=== PATIENT | female | born 1935 | race American Indian/Alaskan Native ===

== ENCOUNTER 2020-06-01 16:03 | Inpatient (IN) | payer MEDICARE ==
[2020-06-01] MEDS ORDERED: SODIUM CHLORIDE 0.9% 1000 ML IV SOLN IV ONE (17:03)
--- NOTE | 2020-06-01 17:26 | Emergency Department Report ---
HPI - General Chief Complaint: Altered Mental Status Time Seen by Provider: 06/01/20 17:02 - HPI HPI: Room 19 The patient is an 85-year-old female present with a chief complaint of altered mental status. Per EMS the initial received a call from [facility] stating the patient was in cardiac arrest. Staff reportedly performed a sternal rub for 10 minutes from the patient and the patient came back around. Staff reported the patient had a positive Covid test. EMS reported the patient was hypoxic with a sat in the 80s and the patient was placed on a nonrebreather. In the ED the patient appears to be satting approximately 95% on room air. 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 ED Past Medical Hx - Past Medical History Hx Hypertension: Yes Hx CVA: Yes Hx of Cancer: Yes (cervical) Hx Dementia: Yes (late stage, non-verbal) Additional medical history: hypothyroid - Family History Family history: no significant - Social History Smoking Status: Unknown if ever smoked ED Review of Systems ROS: Stated complaint: SYNOCOPE Other details as noted in HPI Comment: Unobtainable due to pts medical conditions (Dementia, nonverbal) Physical Exam - Physical Exam Vital Signs: Vital Signs 06/01/20 16:20 Temperature 97.8 F Pulse Rate 86 Respiratory 22 Rate Blood Pressure 138/71 O2 Sat by Pulse 99 Oximetry Physical Exam: GENERAL: The patient is well-developed well-nourished elderly female lying on stretcher eyes open nonverbal. [] HEENT: Normocephalic. Atraumatic. Extraocular motions are intact. Patient has moist mucous membranes. NECK: Supple. Trachea midline CHEST/LUNGS: Clear to auscultation. There is no respiratory distress noted. HEART/CARDIOVASCULAR: Regular. There is no tachycardia. There is no gallop rub or murmur. ABDOMEN: Abdomen is soft, nontender. Patient has normal bowel sounds. There is no abdominal distention. SKIN: There is no rash. There is no edema. There is no diaphoresis. NEURO: The patient is awake but nonverbal. MUSCULOSKELETAL: There is no evidence of acute injury. ED Course Vital Signs 06/01/20 16:20 Temperature 97.8 F Pulse Rate 86 Respiratory 22 Rate Blood Pressure 138/71 O2 Sat by Pulse 99 Oximetry ED Medical Decision Making - Lab Data Result diagrams: 06/01/20 17:21 06/01/20 17:21 - EKG Data -: EKG Interpreted by Me Rate: normal - EKG Data When compared to previous EKG there are: previous EKG unavailable Interpretation: other (Atrial fibrillation at 93 bpm. Occasional PVC. No ischemic changes seen) - Radiology Data Radiology results: report reviewed (Chest x-ray), image reviewed (Chest x-ray) interpreted by me: Chest x-ray-no focal infiltrates, no pneumothorax, no foreign body Findings [address] [address] XRay Report Signed Patient: LOGAN PIERCE MR#: [id number] 462 : 1935 Acct:[id number] Age/Sex: 85 / F ADM Date: 06/01/20 Loc: ED Attending Dr: Ordering Physician: LIZBETH FARMER MD Date of Service: 06/01/20 Procedure(s): XR chest 1V ap Accession Number(s): [id number] cc: LIZBETH FARMER MD Fluoro Time In Minutes: CHEST 1 VIEW 06/01/2020 5:43 PM INDICATION / CLINICAL INFORMATION: Hypox ia. COMPARISON: None available. FINDINGS: SUPPORT DEVICES: None. HEART / MEDIASTINUM: No significant abnormality. LUNGS / PLEURA: No significant pulmonary or pleural abnormality. No pneumothorax. ADDITIONAL FINDINGS: No significant additional findings. IMPRESSION: 1. No acute findings. Signer Name: David Aburto MD Signed: 06/01/2020 6:13 PM Workstation Name: [id number] Transcribed By: CHRISTIANO Dictated By: David Aburto MD Electronically Authenticated By: David Aburto MD Signed Date/Time: 06/01/201812 DD/ 12 TD/TT: Findings [address] [address] Cat Scan Report Signed Patient: LOGAN PIERCE MR#: [id number] 462 : 1935 Acct:[id number] Age/Sex: 85 / F ADM Date: 06/01/20 Loc: ED Attending Dr: Ordering Physician: LIZBETH FARMER MD Date of Service: 06/01/20 Procedure(s): CT head/brain wo con Accession Number(s): [id number] cc: LIZBETH FARMER MD CT head/brain wo con INDICATION / CLINICAL INFORMATION: 85 years Female; Altered mental status. TECHNIQUE: Routine CT head without contrast. All CT scans at this location are performed using CT dose reduction for ALARA by means of automated exposure control. COMPARISON: None. FINDINGS: BRAIN / INTRACRANIAL CONTENTS: The motion degrades the image quality despite repeat imaging. However, there is extensive cerebral white matter disease most consistent with microvascular angiopathy. There is encephalomalacia involving posterior cerebrum bilaterally most consistent with old infarcts at. There also appears to be septal malacia involving the inferior temporal lobes, greater on the left which may also reflect chronic ischemic changes or possibly related to previous trauma. There also appears be advanced cerebral atrophy, most notably involving the temporal. There is corresponding prominence of the ventricular system. There is an old small lacunar infarct involving the left jose. There is no clear CT evidence of acute intracranial hemorrhage or significant mass effect. ORBITS: No significant abnormality. SINUSES / MASTOIDS: There is near complete opacification of the visualized maxillary as well as the left sphenoid sinuses with apparent air- fluid levels. Scattered opacification is also seen within the inferior left mastoid air cells. CRANIOCERVICAL JUNCTION: No significant abnormality. ADDITIONAL FINDINGS: None. IMPRESSION: 1. 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 2. There is advanced cerebral atrophy, most oblique involving the temporal lobes. 3. There is no definitive CT evidence of acute intracranial hemorrhage. 4: There is near complete opacification of the visualized maxillary and left sphenoid sinuses. Signer Name: Paulino Davidson MD Signed: 06/01/2020 6:23 PM Workstation Name: [id number] Transcribed By: MR Dictated By: Paulino Davidson MD Electronically Authenticated By: Paulino Davidson MD Signed Date/Time: 06/01/201822 DD/ 16 T D/TT: - Differential Diagnosis Altered mental status Critical care attestation.: If time is entered above; I have spent that time in minutes in the direct care of this critically ill patient, excluding procedure time. ED Disposition Clinical Impression: New onset atrial fibrillation, Episode of unresponsiveness Disposition: OP ADMIT IP TO THIS HOSP Is pt being admited?: Yes Does the pt Need Aspirin: Yes Condition: Fair Time of Disposition: 18:59 (Hospitalist paged (Dr Stock))
[2020-06-01 17:40] LABS: Mean Corpuscular HGB Conc 31 % (30-34); Mean Corpuscular Volume 84 fl (79-97); Platelet Count 289 K/mm3 (140-440); Red Blood Count 5.42 M/mm3 (3.65-5.03)
[2020-06-01 17:56] LABS: Hematocrit 45.4 % (30.3-42.9); Hemoglobin 13.9 gm/dl (10.1-14.3)
[2020-06-01 18:01] LABS: Alanine Aminotransferase 16 units/L (7-56); Albumin 3.4 g/dL (3.9-5); BUN/Creatinine Ratio 27; Blood Urea Nitrogen 24 mg/dL (7-17); Calcium 9.2 mg/dL (8.4-10.2); Hemolysis Index 8
[2020-06-01 18:02] LABS: C-Reactive Protein 5.4 mg/dL (0.00-1.30)
--- NOTE | 2020-06-01 18:18 | XRay Report ---
CHEST 1 VIEW 06/01/2020 5:43 PM INDICATION / CLINICAL INFORMATION: Hypoxia. COMPARISON: None available. FINDINGS: SUPPORT DEVICES: None. HEART / MEDIASTINUM: No significant abnormality. LUNGS / PLEURA: No significant pulmonary or pleural abnormality. No pneumothorax. ADDITIONAL FINDINGS: No significant additional findings. IMPRESSION: 1. No acute findings. Signer Name: David Aburto MD Signed: 06/01/2020 6:13 PM Workstation Name: [id number]
--- NOTE | 2020-06-01 18:27 | Cat Scan Report ---
CT head/brain wo con INDICATION / CLINICAL INFORMATION: 85 years Female; Altered mental status. TECHNIQUE: Routine CT head without contrast. All CT scans at this location are performed using CT dos e reduction for ALARA by means of automated exposure control. COMPARISON: None. FINDINGS: BRAIN / INTRACRANIAL CONTENTS: The motion degrades the image quality despite repeat imaging. However, there is extensive cerebral white matter disease most consistent with microvascular angiopathy. Ther e is encephalomalacia involving posterior cerebrum bilaterally most consistent with old infarcts at. There also appears to be septal malacia involving the inferior temporal lobes, greater on the left wh ich may also reflect chronic ischemic changes or possibly related to previous trauma. There also appe ars be advanced cerebral atrophy, most notably involving the temporal. There is corresponding promine nce of the ventricular system. There is an old small lacunar infarct involving the left jose. There is no clear CT evidence of acute intracranial hemorrhage or significant mass effect. ORBITS: No significant abnormality. SINUSES / MASTOIDS: There is near complete opacification of the visualized maxillary as well as the l eft sphenoid sinuses with apparent air-fluid levels. Scattered opacification is also seen within the inferior left mastoid air cells. CRANIOCERVICAL JUNCTION: No significant abnormality. ADDITIONAL FINDINGS: None. IMPRESSION: 1. 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 2. There is advanced cerebral atrophy, most oblique involving the temporal lobes. 3. There is no definitive CT evidence of acute intracranial hemorrhage. 4: There is near complete opacification of the visualized maxillary and left sphenoid sinuses. Signer Name: Paulino Davidson MD Signed: 06/01/2020 6:23 PM Workstation Name: [id number]
[2020-06-01 18:32] LABS: Free T4 (Free Thyroxine) 1.55 ng/dL (0.76-1.46)
[2020-06-01 18:49] LABS: Anisocytosis Few; Hypochromasia 1+; Total Cells Counted 100
[2020-06-01] MEDS ORDERED: ASPIRIN 325 MG TAB PO ONE (19:02)
[2020-06-01] MEDS ORDERED: ACETAMINOPHEN 325 MG TAB PO PRN (21:59)
[2020-06-01] MEDS ORDERED: HEPARIN 10,000 UNITS/10 ML VIAL IV ONE (22:01)
[2020-06-01 23:04] LABS: Bilirubin,Urine NEG (Negative); Blood,Urine MOD (Negative); Color,Urine Yellow (Yellow); Mucus,Urine 2+ /HPF; Urobilinogen,Urine < 2.0 mg/dL (<2.0)
[2020-06-01 23:05] LABS: WBC,Urine > 182.0 /HPF (0.0-6.0)
[2020-06-01] MEDS ORDERED: HEPARIN/ 0.45% NACL DRIP 25,000 UNIT/500 ML BAG ONE (23:56)
[2020-06-01] MEDS ORDERED: HEPARIN 10,000 UNITS/10 ML VIAL ONE (23:56)
[2020-06-02] MEDS: HEPARIN/ 0.45% NACL DRIP 25,000 UNIT/500 ML BAG IV SCH ×2 (00:53→22:48)
[2020-06-02 01:01] LABS: Creatine Kinase MB 1.4 ng/mL (0.0-4.0)
[2020-06-02 01:19] LABS: Hematocrit 41.6 % (30.3-42.9); Hemoglobin 13.3 gm/dl (10.1-14.3)
[2020-06-02 01:31] LABS: INR 1.1 (0.87-1.13)
[2020-06-02 01:32] LABS: Partial Thromboplastin Time 30.1 Sec. (24.2-36.6)
[2020-06-02] MEDS: SODIUM CHLORIDE 0.9% 1000 ML 1,000 ML IV SCH ×2 (04:21→22:47)
--- NOTE | 2020-06-02 07:31 | History and Physical Report ---
History of Present Illness Date of examination: 06/01/20 Date of admission: 06/01/20 19:25 Chief complaint: Chief complaint is altered mental status History of present illness: History of presenting illness, patient is an 85-year-old male [facility] because of change in mental status, patient was noted by [facility] to have decreased responsiveness last responding to noxious stimulus and EMS was called and also patient was reported to have low oxygen saturation. There was no history of fever or chills, and no history of chest pain, nausea or vomiting.On arrival at the emergency room patient was noted to to have new onset atrial fibrillation with rate controlled. Past History Past Medical History: hypothyroidism (DEMENTIA, CERVICAL CANCER), stroke, other (CERVICAL CANCER, DEMENTIA, HYPOTHYROIDISM) Past Surgical History: No surgical history Social history: other ([employer] AT [employer]) Family history: no significant family history Medications and Allergies Allergies Allergy/AdvReac Type Severity Reaction Status Date / Time Beta-Blockers Allergy Unknown Verified 06/01/20 23:50 (Beta-Adrenergic Bloc Cephalosporins Allergy Unknown Verified 06/01/20 23:50 Penicillins Allergy Unknown Verified 06/01/20 23:50 Home Medications Medication Instructions Recorded Confirmed Last Taken Type Acetaminophen [Tylenol] 650 mg PO Q6HR PRN 06/02/20 06/02/20 Unknown History Ascorbic Acid/Ascorbate Sodium 500 mg PO QDAY 06/02/20 06/02/20 Unknown History [Vitamin C 500 mg Wafer] Aspirin [Aspirin BABY CHEW TAB] 81 mg PO QDAY 06/02/20 06/02/20 Unknown History Cholecalciferol Vit D3 [Vitamin D3 4,000 unit PO QDAY 06/02/20 06/02/20 Unknown History 1,000 UNIT TAB] Colchicine 0.6 mg PO QDAY 06/02/20 06/02/20 Unknown History Famotidine [Pepcid] 10 mg PO QDAY 06/02/20 06/02/20 Unknown History Furosemide (10 mg/ml) [Lasix ORAL 1 ml PO QDAY 06/02/20 06/02/20 Unknown History SOLN] Ipratropium/Albuterol Sulfate 1 ampul IH Q6HR PRN 06/02/20 06/02/20 Unknown History [DUONEB *Not for PRN Use*] Levothyroxine [Synthroid] 125 mcg PO QAM 06/02/20 06/02/20 Unknown History Meloxicam [Mobic] 15 mg PO QDAY 06/02/20 06/02/20 Unknown History Memantine HCl 10 mg PO QDAY 06/02/20 06/02/20 Unknown History Montelukast [Singulair] 10 mg PO QPM 06/02/20 06/02/20 Unknown History Ondansetron [Zofran Odt] 4 mg PO Q8HR 06/02/20 06/02/20 Unknown History Potassium Chloride 20 meq PO Q48HR 06/02/20 06/02/20 Unknown History Sennosides/Docusate Sodium 100 mg PO BID 06/02/20 06/02/20 Unknown History [Docusate Sodium-Senna Tablet] Sennosides/Docusate Sodium 1 each PO BID 06/02/20 06/02/20 Unknown History [Senna-S 8.6-50 mg Tablet] amLODIPine [Norvasc] 10 mg PO DAILY 06/02/20 06/02/20 Unknown History guaiFENesin DM [Guaifenesin Dm 10 ml PO Q8HR PRN 06/02/20 06/02/20 Unknown History Syrup] Active Meds: Active Medications Acetaminophen (Tylenol) 650 mg PO Q4H PRN PRN Reason: Pain, Mild (1-3) Sodium Chloride (Nacl 0.9% 1000 Ml) 1,000 mls @ 75 mls/hr IV DIRECT [facility] Last Admin: 06/02/20 04:21 Dose: 75 mls/hr Documented by: Heparin Sodium/Sodium Chloride (Heparin/ 0.45% Nacl-25,000 Unit/500 Ml) 25,000 unit in 500 mls @ 23 mls/hr IV TITR [facility]; Protocol Last Admin: 06/02/20 00:53 Dose: 1,150 units/hr, 23 mls/hr Documented by: Aztreonam 500 mg/ Sodium (Chloride) 50 mls @ 50 mls/hr IV Q12HR [facility]; Protocol Review of Systems Constitutional: weakness, lethargy, no weight loss, no weight gain, no fever, no chills, no sweats Eyes: bilateral: other (NO BILATERAL EYE SYMPTOM) Ears, nose, mouth and throat: no nasal congestion, no nasal discharge, no dysphagia, no hoarseness, no sore throat, no swelling in mouth, no headache Breasts: deferred Cardiovascular: no chest pain, no palpitations, no lightheadedness, no shortness of breath Respiratory: no cough, no shortness of breath, no dyspnea on exertion Gastrointestinal: no abdominal pain, no nausea, no vomiting, no diarrhea, no constipation, no hematochezia, no dyspepsia/bloating Genitourinary Female: no dysuria, no urge incontinence, no Menstruation: postmenopausal Rectal: no pain, no itching Musculoskeletal: no neck stiffness, no neck pain, no low back pain, no shooting leg pain, no myalgias Integumentary: no rash, no pruritis, no redness, no jaundice, no lesions, no depigmentation Neurological: change in mentation, no seizures, no syncope, no tremors, no convulsions, no change in speech Exam - Constitutional Vitals: Temp Pulse Resp BP Pulse Ox 98.3 F 75 18 166/75 97 06/02/20 06:00 06/02/20 06:33 06/02/20 06:33 06/02/20 06:33 06/02/20 06:33 General appearance: Present: no acute distress - EENT Eyes: Present: PERRL ENT: clear oral mucosa - Neck Neck: Present: supple, normal ROM - Respiratory Respiratory effort: normal - Cardiovascular Rhythm: regular Heart Sounds: Present: S1 & S2. Absent: gallop, systolic murmur, diastolic murmur, click - Extremities Extremities: no ischemia, No edema Peripheral Pulses: within normal limits - Abdominal General gastrointestinal: Present: soft, non-tender, non-distended. Absent: tender, distended, rigid, hepatomegaly, splenomegaly, mass Female genitourinary: Present: deferred - Rectal Rectal Exam: deferred - Integumentary Integumentary: Present: clear, warm, dry - Musculoskeletal Musculoskeletal: strength equal bilaterally HEART Score - HEART Score Age: > 65 Risk factors: 1-2 risk factors Troponin: Troponin T < 0.010 ng/mL (0.00-0.029) 06/02/20 00:14 Troponin: < normal limit - Critical Actions Critical Actions: 0-3 pts:0.9-1.7%risk of adverse cardiac event.Candidate for discharge Results - Labs CBC & Chem 7: 06/02/20 00:14 06/01/20 17:21 Labs: Laboratory Last Values WBC 6.2 K/mm3 (4.5-11.0) 06/01/20 17:21 RBC 5.42 M/mm3 (3.65-5.03) H 06/01/20 17:21 Hgb 13.3 gm/dl (10.1-14.3) 06/02/20 00:14 Hct 41.6 % (30.3-42.9) 06/02/20 00:14 MCV 84 fl (79-97) 06/01/20 17:21 MCH 26 pg (28-32) L 06/01/20 17:21 MCHC 31 % (30-34) 06/01/20 17:21 RDW 15.0 % (13.2-15.2) 06/01/20 17:21 Plt Count 281 K/mm3 (140-440) 06/02/20 00:14 [place] % (Auto) [place] 06/01/20 17:21 Add Manual Diff Complete 06/01/20 17:21 Total Counted 100 06/01/20 17:21 Seg Neuts % (Manual) 53.0 % (40.0-70.0) 06/01/20 17:21 Band Neutrophils % 0 % 06/01/20 17:21 Lymphocytes % (Manual) 26.0 % (13.4-35.0) 06/01/20 17:21 Reactive Lymphs % (Man) 0 % 06/01/20 17:21 Monocytes % (Manual) 18.0 % (0.0-7.3) H 06/01/20 17:21 Eosinophils % (Manual) 2.0 % (0.0-4.3) 06/01/20 17:21 Basophils % (Manual) 1.0 % (0.0-1.8) 06/01/20 17:21 Metamyelocytes % 0 % 06/01/20 17:21 Myelocytes % 0 % 06/01/20 17:21 Promyelocytes % 0 % 06/01/20 17:21 Blast Cells % 0 % 06/01/20 17:21 Nucleated RBC % Not Reportable 06/01/20 17:21 Seg Neutrophils # Man 3.3 K/mm3 (1.8-7.7) 06/01/20 17:21 Band Neutrophils # 0.0 K/mm3 06/01/20 17:21 Lymphocytes # (Manual) 1.6 K/mm3 (1.2-5.4) 06/01/20 17:21 Abs React Lymphs (Man) 0.0 K/mm3 06/01/20 17:21 Monocytes # (Manual) 1.1 K/mm3 (0.0-0.8) H 06/01/20 17:21 Eosinophils # (Manual) 0.1 K/mm3 (0.0-0.4) 06/01/20 17:21 Basophils # (Manual) 0.1 K/mm3 (0.0-0.1) 06/01/20 17:21 Metamyelocytes # 0.0 K/mm3 06/01/20 17:21 Myelocytes # 0.0 K/mm3 06/01/20 17:21 Promyelocytes # 0.0 K/mm3 06/01/20 17:21 Blast Cells # 0.0 K/mm3 06/01/20 17:21 WBC Morphology Not Reportable 06/01/20 17:21 Hypersegmented Neuts Not Reportable 06/01/20 17:21 Hyposegmented Neuts Not Reportable 06/01/20 17:21 Hypogranular Neuts Not Reportable 06/01/20 17:21 Smudge Cells Not Reportable 06/01/20 17:21 Toxic Granulation Not Reportable 06/01/20 17:21 Toxic Vacuolation Not Reportable 06/01/20 17:21 Dohle Bodies Not Reportable 06/01/20 17:21 Pelger-Huet Anomaly Not Reportable 06/01/20 17:21 Alda Rods Not Reportable 06/01/20 17:21 Platelet Estimate Not Reportable 06/01/20 17:21 Clumped Platelets Not Reportable 06/01/20 17:21 Plt Clumps, EDTA Not Reportable 06/01/20 17:21 Large Platelets Not Reportable 06/01/20 17:21 Giant Platelets Not Reportable 06/01/20 17:21 Platelet Satelliting Not Reportable 06/01/20 17:21 Plt Morphology Comment Not Reportable 06/01/20 17:21 RBC Morphology Not Reportable 06/01/20 17:21 Dimorphic RBCs Not Reportable 06/01/20 17:21 Polychromasia Not Reportable 06/01/20 17:21 Hypochromasia 1+ 06/01/20 17:21 Poikilocytosis Not Reportable 06/01/20 17:21 Anisocytosis Few 06/01/20 17:21 Microcytosis Few 06/01/20 17:21 Macrocytosis Not Reportable 06/01/20 17:21 Spherocytes Not Reportable 06/01/20 17:21 Pappenheimer Bodies Not Reportable 06/01/20 17:21 Sickle Cells Not Reportable 06/01/20 17:21 Target Cells Not Reportable 06/01/20 17:21 Tear Drop Cells Not Reportable 06/01/20 17:21 Ovalocytes Not Reportable 06/01/20 17:21 Helmet Cells Not Reportable 06/01/20 17:21 [place] Bodies Not Reportable 06/01/20 17:21 Mitchells Rings Not Reportable 06/01/20 17:21 Raquel Cells Not Reportable 06/01/20 17:21 Bite Cells Not Reportable 06/01/20 17:21 Crenated Cell Not Reportable 06/01/20 17:21 Elliptocytes Not Reportable 06/01/20 17:21 Acanthocytes (Spur) Not Reportable 06/01/20 17:21 Rouleaux Not Reportable 06/01/20 17:21 Hemoglobin C Crystals Not Reportable 06/01/20 17:21 Schistocytes Not Reportable 06/01/20 17:21 Malaria parasites Not Reportable 06/01/20 17:21 Kentrell Bodies Not Reportable 06/01/20 17:21 Hem Pathologist Commnt No 06/01/20 17:21 PT 14.3 Sec. (12.2-14.9) 06/02/20 00:14 INR 1.10 (0.87-1.13) 06/02/20 00:14 APTT 30.1 Sec. (24.2-36.6) 06/02/20 00:14 D-Dimer 1105.43 ng/mlDDU (0-234) H 06/01/20 17:21 Sodium 145 mmol/L (137-145) 06/01/20 17:21 Potassium 4.5 mmol/L (3.6-5.0) 06/01/20 17:21 Chloride 106.7 mmol/L (98-107) 06/01/20 17:21 Carbon Dioxide 26 mmol/L (22-30) 06/01/20 17:21 Anion Gap 17 mmol/L 06/01/20 17:21 BUN 24 mg/dL (7-17) H 06/01/20 17:21 Creatinine 0.9 mg/dL (0.6-1.2) 06/01/20 17:21 Estimated GFR > 60 ml/min 06/01/20 17:21 BUN/Creatinine Ratio 27 % 06/01/20 17:21 Glucose 134 mg/dL (65-100) H 06/01/20 17:21 Glucose 135 mg/dL (65-100) H 06/01/20 17:21 Lactic Acid 1.10 mmol/L (0.7-2.0) 06/01/20 20:21 Calcium 9.2 mg/dL (8.4-10.2) 06/01/20 17:21 Ferritin > 2000.0 ng/mL (10.0-200.0) H 06/01/20 17:21 Total Bilirubin 0.60 mg/dL (0.1-1.2) 06/01/20 17:21 AST 20 units/L (5-40) 06/01/20 17:21 ALT 16 units/L (7-56) 06/01/20 17:21 Alkaline Phosphatase 113 units/L (35-129) 06/01/20 17:21 Lactate Dehydrogenase 203 units/L (91-180) H 06/01/20 17:21 Total Creatine Kinase 136 units/L (30-135) H 06/02/20 00:14 CK-MB (CK-2) 1.4 ng/mL (0.0-4.0) 06/02/20 00:14 CK-MB (CK-2) Rel Index 1.0 (0-4) 06/02/20 00:14 Troponin T < 0.010 ng/mL (0.00-0.029) 06/02/20 00:14 C-Reactive Protein 5.40 mg/dL (0.00-1.30) H 06/01/20 17:21 Total Protein 8.1 g/dL (6.3-8.2) 06/01/20 17:21 Albumin 3.4 g/dL (3.9-5) L 06/01/20 17:21 Albumin/Globulin Ratio 0.7 % 06/01/20 17:21 TSH 3.070 mlU/mL (0.270-4.200) 06/01/20 17:21 Free T4 1.55 ng/dL (0.76-1.46) H 06/01/20 17:21 Urine Color Yellow (Yellow) 06/01/20 Unknown Urine Turbidity Turbid (Clear) 06/01/20 Unknown Urine pH 5.0 (5.0-7.0) 06/01/20 Unknown Ur Specific [place] 1.013 (1.003-1.030) 06/01/20 Unknown Urine Protein 100 mg/dl mg/dL (Negative) 06/01/20 Unknown Urine Glucose (UA) Neg mg/dL (Negative) 06/01/20 Unknown Urine Ketones Neg mg/dL (Negative) 06/01/20 Unknown Urine Blood Mod (Negative) 06/01/20 Unknown Urine Nitrite Neg (Negative) 06/01/20 Unknown Urine Bilirubin Neg (Negative) 06/01/20 Unknown Urine Urobilinogen < 2.0 mg/dL (<2.0) 06/01/20 Unknown Ur Leukocyte Esterase Lg (Negative) 06/01/20 Unknown Urine WBC (Auto) > 182.0 /HPF (0.0-6.0) H 06/01/20 Unknown Urine RBC (Auto) 72.0 /HPF (0.0-6.0) 06/01/20 Unknown Urine WBC Clumps 3+ /HPF 06/01/20 Unknown Urine Mucus 2+ /HPF 06/01/20 Unknown Urine Yeast (Budding) 3+ /HPF 06/01/20 Unknown Microbiology: Microbiology 06/01/20 17:21 Peripheral/Venous Blood Culture - Preliminary Culture in Progress 06/01/20 17:21 Peripheral/Venous Blood Culture - Preliminary Culture in Progress Serrano/IV: Voiding Method Indwelling Catheter IV Catheter Type [Left Forearm INT / Saline Lock ] IV Catheter Type [Right Hand] INT / Saline Lock Assessment and Plan - Patient Problems (1) UTI (urinary tract infection) Current Visit: Yes Status: Acute Plan to address problem: I.V AZTREONAM (2) Episode of unresponsiveness Current Visit: Yes Status: Acute Plan to address problem: 1. OXYGEN BY NASAL CANNULA 2. I.V NORMAL SALINE (3) New onset atrial fibrillation Current Visit: Yes Status: Acute Plan to address problem: 1. I.V HEPARIN ANTICOAGULATION 2. CARDIOLOGY CONSULT 3. SERIAL CARDIAC ENZYME 4. TELEMETRY MORNITORING
[2020-06-02 07:58] LABS: Creatine Kinase MB 1.8 ng/mL (0.0-4.0)
[2020-06-02] MEDS ORDERED: AZTREONAM 500 MG in SODIUM CHLORIDE 0.9% 50 ML IV SCH (10:00)
--- NOTE | 2020-06-02 10:04 | Consultation ---
History of Present Illness Consult date: 06/02/20 Consult reason: atrial fibrillation History of present illness: 85 YO woman who is a [facility] resident and was brought to ED at [facility] due to altered mental status. She was found to have UTI. She was also found to have atrial fibrillation and cardiology consult was requested. Patient is not currently able to provide any medical history Of note, medical records from previous hospitalization at [facility] in 01/2011 also reveal that she was in atrial fibrillation at that time. She was also noted to have significant alzheimer's dementia at the time. EKG on current presentation revealed atrial fibrillation with ventricular rate of 93 bpm, nonspecific ST changes Past History Past Medical History: hypothyroidism (DEMENTIA, CERVICAL CANCER), stroke, other (CERVICAL CANCER, DEMENTIA, HYPOTHYROIDISM) Past Surgical History: No surgical history Social history: other ([facility] [employer]) Family history: no significant family history Medications and Allergies Allergies Allergy/AdvReac Type Severity Reaction Status Date / Time Beta-Blockers Allergy Unknown Verified 06/01/20 23:50 (Beta-Adrenergic Bloc Cephalosporins Allergy Unknown Verified 06/01/20 23:50 Penicillins Allergy Unknown Verified 06/01/20 23:50 Home Medications Medication Instructions Recorded Confirmed Last Taken Type Acetaminophen [Tylenol] 650 mg PO Q6HR PRN 06/02/20 06/02/20 Unknown History Ascorbic Acid/Ascorbate Sodium 500 mg PO QDAY 06/02/20 06/02/20 Unknown History [Vitamin C 500 mg Wafer] Aspirin [Aspirin BABY CHEW TAB] 81 mg PO QDAY 06/02/20 06/02/20 Unknown History Cholecalciferol Vit D3 [Vitamin D3 4,000 unit PO QDAY 06/02/20 06/02/20 Unknown History 1,000 UNIT TAB] Colchicine 0.6 mg PO QDAY 06/02/20 06/02/20 Unknown History Famotidine [Pepcid] 10 mg PO QDAY 06/02/20 06/02/20 Unknown History Furosemide (10 mg/ml) [Lasix ORAL 1 ml PO QDAY 06/02/20 06/02/20 Unknown History SOLN] Ipratropium/Albuterol Sulfate 1 ampul IH Q6HR PRN 06/02/20 06/02/20 Unknown History [DUONEB *Not for PRN Use*] Levothyroxine [Synthroid] 125 mcg PO QAM 06/02/20 06/02/20 Unknown History Meloxicam [Mobic] 15 mg PO QDAY 06/02/20 06/02/20 Unknown History Memantine HCl 10 mg PO QDAY 06/02/20 06/02/20 Unknown History Montelukast [Singulair] 10 mg PO QPM 06/02/20 06/02/20 Unknown History Ondansetron [Zofran Odt] 4 mg PO Q8HR 06/02/20 06/02/20 Unknown History Potassium Chloride 20 meq PO Q48HR 06/02/20 06/02/20 Unknown History Sennosides/Docusate Sodium 100 mg PO BID 06/02/20 06/02/20 Unknown History [Docusate Sodium-Senna Tablet] Sennosides/Docusate Sodium 1 each PO BID 06/02/20 06/02/20 Unknown History [Senna-S 8.6-50 mg Tablet] amLODIPine [Norvasc] 10 mg PO DAILY 06/02/20 06/02/20 Unknown History guaiFENesin DM [Guaifenesin Dm 10 ml PO Q8HR PRN 06/02/20 06/02/20 Unknown History Syrup] Active Meds: Active Medications Acetaminophen (Tylenol) 650 mg PO Q4H PRN PRN Reason: Pain, Mild (1-3) Sodium Chloride (Nacl 0.9% 1000 Ml) 1,000 mls @ 75 mls/hr IV DIRECT NHI Last Admin: 06/02/20 04:21 Dose: 75 mls/hr Documented by: Heparin Sodium/Sodium Chloride (Heparin/ 0.45% Nacl-25,000 Unit/500 Ml) 25,000 unit in 500 mls @ 23 mls/hr IV TITR NHI; Protocol Last Titration: 06/02/20 07:56 Dose: 1,050 units/hr, 21 mls/hr Documented by: Aztreonam (Azactam/Ns 1 Gm/50 Ml) 1 gm in 50 mls @ 50 mls/hr IV Q12HR NHI Physical Examination Vital Signs Temp Pulse Resp BP Pulse Ox 97.8 F 86 22 138/71 99 06/01/20 16:20 06/01/20 16:20 06/01/20 16:20 06/01/20 16:20 08/15/20 16:20 General appearance: other (elderly woman, confused) Neck: Positive: neck supple Cardiac: Positive: irregularly irregular Lungs: Positive: Decreased Breath Sounds Abdomen: Positive: Soft, Active Bowel Sounds Skin: Positive: Clear Extremities: Absent: edema Results 06/02/20 00:14 06/01/20 17:21 Cardiac Enzymes 06/01/20 06/01/20 06/02/20 Range/Units 17:21 17:21 00:14 AST 20 (5-40) units/L Lactate Dehydrogenase 203 H (91-180) units/L CK-MB (CK-2) 1.4 (0.0-4.0) ng/mL 06/02/20 Range/Units 07:08 AST (5-40) units/L Lactate Dehydrogenase (91-180) units/L CK-MB (CK-2) 1.8 (0.0-4.0) ng/mL Coagulation 06/02/20 Range/Units 00:14 PT 14.3 (12.2-14.9) Sec. INR 1.10 (0.87-1.13) APTT 30.1 (24.2-36.6) Sec. CBC 06/01/20 06/02/20 Range/Units 17:21 00:14 WBC 6.2 (4.5-11.0) K/mm3 RBC 5.42 H (3.65-5.03) M/mm3 Hgb 13.9 13.3 (10.1-14.3) gm/dl Hct 45.4 H 41.6 (30.3-42.9) % Plt Count 289 281 (140-440) K/mm3 Comprehensive Metabolic Panel 06/01/20 06/01/20 Range/Units 17:21 17:21 Sodium 145 (137-145) mmol/L Potassium 4.5 (3.6-5.0) mmol/L Chloride 106.7 (98-107) mmol/L Carbon Dioxide 26 (22-30) mmol/L BUN 24 H (7-17) mg/dL Creatinine 0.9 (0.6-1.2) mg/dL Glucose 135 H 134 H (65-100) mg/dL Calcium 9.2 (8.4-10.2) mg/dL AST 20 (5-40) units/L ALT 16 (7-56) units/L Alkaline Phosphatase 113 (35-129) units/L Total Protein 8.1 (6.3-8.2) g/dL Albumin 3.4 L (3.9-5) g/dL Assessment and Plan Atrial fibrillation: Duration unclear but suspect she has longstanding persis tent atrial fibrillation as she was also in AF during hospitalization at [facility] in 2010 [id number] VASc = 4 UTI Likely dementia Htn Recommend: Will pursue rate control strategy for atrial fibrillation - Will need to clarify her baseline mental status prior to determining if she is a good candidate for assisted anticoagulation - suspect that she will not be a good candidate.
[2020-06-02] MEDS: AZTREONAM/NS 1 GM/50 ML 1 GM/50 ML VIAL IV SCH ×2 (11:03→22:43)
[2020-06-03 05:54] LABS: Hematocrit 41.1 % (30.3-42.9); Hemoglobin 13.2 gm/dl (10.1-14.3)
[2020-06-03] MEDS: AZTREONAM/NS 1 GM/50 ML 1 GM/50 ML VIAL IV SCH ×2 (10:17→22:42)
--- NOTE | 2020-06-03 10:38 | Progress Note ---
Assessment and Plan Atrial fibrillation Duration unclear but suspect she has longstanding persistent atrial fibrillation as she was also in AF during hospitalization at [facility] in 2010 UTI Likely dementia Htn Will add low dose beta jelani for rate control of persistent atrial fibrillation. Subjective Date of service: 06/03/20 Interval history: Atrial fibrillation with a well controlled ventricular rate on telemetry. Objective Vital Signs Temp Pulse Resp BP Pulse Ox 06/03/20 05:26 82 20 122/88 96 06/02/20 22:38 97.4 F L 91 H 24 122/67 96 06/02/20 16:48 98 06/02/20 16:45 97.0 F L 81 18 161/90 70 L 06/02/20 11:29 93 06/02/20 11:16 97.0 F L 75 18 165/77 90 - Physical Examination Narrative exam: Deferred due to isolation procotol. Neck: Positive: neck supple Abdomen: Positive: Soft, Active Bowel Sounds Skin: Positive: Clear Extremities: Absent: edema - Labs and Meds CBC 06/03/20 Range/Units 05:02 Hgb 13.2 (10.1-14.3) gm/dl Hct 41.1 (30.3-42.9) % Plt Count 264 (140-440) K/mm3
--- NOTE | 2020-06-03 15:15 | Progress Note ---
Assessment and Plan Assessment and plan: 85-year-old female [facility] because of change in mental status. Patient was noted by [facility] to have decreased responsiveness last responding to noxious stimulus and EMS was called and also patient was reported to have low oxygen saturation. There was no history of fever or chills, and no history of chest pain, nausea or vomiting.On arrival at the emergency room patient was noted to to have new onset atrial fibrillation. She also found to have UTI with started on antibiotics. Cardiology was consulted for atrial fibrillation 06/03. Patient seen and examined at bedside this morning. Patient is confused [baseline unknown]. Vitals reviewed. Cardiology and ID following - Patient Problems (1) Acute metabolic encephalopathy Current Visit: Yes Status: Acute Plan to address problem: Baseline unknown. Patient has a history of dementia Likely worse with infectious process-UTI and COVID-19. Continue antibiotics (2) New onset atrial fibrillation Current Visit: Yes Status: Acute Plan to address problem: Continue rate control medication. Cardiology on board Given advanced dementia, cardiology does not recommend anticoagulation at this time. (3) COVID-19 Current Visit: Yes Status: Acute Plan to address problem: COVID-19. Maintain on isolation ID on board (4) UTI (urinary tract infection) Current Visit: Yes Status: Acute Plan to address problem: Continue antibiotics Urine cultures pending (5) Hematuria Current Visit: Yes Status: Acute Plan to address problem: Likely due to heparin drip. This has been discontinued. As per cardiology, patient is a poor candidate for anticoagulation as his atrial fibrillation is chronic as she has baseline dementia. Resume heparin for DVT prophylaxis only for now and monitor. If repeat bleeding, will hold heparin for DVT prophylaxis and consult urology. Check urinalysis. (6) Sacral ulcer Current Visit: Yes Status: Acute Plan to address problem: Wound care to evaluate. Patient may need debridement (7) DVT prophylaxis Current Visit: Yes Status: Acute Plan to address problem: Heparin History Interval history: See assessment and plan Hospitalist Physical - Constitutional Vitals: Temp Pulse Resp BP Pulse Ox 97.5 F L 79 48 H 160/85 97 06/03/20 11:50 06/03/20 11:50 06/03/20 11:50 06/03/20 11:50 06/03/20 11:50 General appearance: Present: no acute distress, other (elderly woman, confused) - EENT Eyes: Present: PERRL - Neck Neck: Present: supple - Respiratory Respiratory: bilateral: CTA - Cardiovascular Rhythm: irregularly irregular Heart Sounds: Present: S1 & S2 - Abdominal General gastrointestinal: soft, non-tender, non-distended - Integumentary Integumentary: Present: clear - Neurologic Neurologic: CNII-XII intact, other (Complete neurological exam limited by baseli ne dementia) HEART Score - HEART Score Age: > 65 Risk factors: 1-2 risk factors Troponin: Troponin T < 0.010 ng/mL (0.00-0.029) 06/02/20 07:08 Troponin: < normal limit - Critical Actions Critical Actions: 0-3 pts:0.9-1.7%risk of adverse cardiac event.Candidate for discharge Results - Labs CBC & Chem 7: 06/03/20 05:02 06/01/20 17:21 Labs: Laboratory Last Values WBC 6.2 K/mm3 (4.5-11.0) 06/01/20 17: RBC 5.42 M/mm3 (3.65-5.03) H 06/01/20 17: Hgb 13.2 gm/dl (10.1-14.3) 06/03/20 05:02 Hct 41.1 % (30.3-42.9) 06/03/20 05:02 MCV 84 fl (79-97) 06/01/20 17:21 MCH 26 pg (28-32) L 06/01/20 17: MCHC 31 % (30-34) 06/01/20 17: RDW 15.0 % (13.2-15.2) 06/01/20 17: Plt Count 264 K/mm3 (140-440) 06/03/20 05:02 [place] % (Auto) Medical Coding Auditor 06/01/20 17:21 Add Manual Diff Complete 06/01/20 17: Total Counted 100 06/01/20 17: Seg Neuts % (Manual) 53.0 % (40.0-70.0) 06/01/20 17: Band Neutrophils % 0 % 06/01/20 17:21 Lymphocytes % (Manual) 26.0 % (13.4-35.0) 06/01/20 17: Reactive Lymphs % (Man) 0 % 06/01/20 17:21 Monocytes % (Manual) 18.0 % (0.0-7.3) H 06/01/20 17:21 Eosinophils % (Manual) 2.0 % (0.0-4.3) 06/01/20 17:21 Basophils % (Manual) 1.0 % (0.0-1.8) 06/01/20 17:21 Metamyelocytes % 0 % 06/01/20 17:21 Myelocytes % 0 % 06/01/20 17:21 Promyelocytes % 0 % 06/01/20 17:21 Blast Cells % 0 % 06/01/20 17:21 Nucleated RBC % Not Reportable 06/01/20 17:21 Seg Neutrophils # Man 3.3 K/mm3 (1.8-7.7) 06/01/20 17:21 Band Neutrophils # 0.0 K/mm3 06/01/20 17:21 Lymphocytes # (Manual) 1.6 K/mm3 (1.2-5.4) 06/01/20 17:21 Abs React Lymphs (Man) 0.0 K/mm3 06/01/20 17:21 Monocytes # (Manual) 1.1 K/mm3 (0.0-0.8) H 06/01/20 17:21 Eosinophils # (Manual) 0.1 K/mm3 (0.0-0.4) 06/01/20 17:21 Basophils # (Manual) 0.1 K/mm3 (0.0-0.1) 06/01/20 17:21 Metamyelocytes # 0.0 K/mm3 06/01/20 17:21 Myelocytes # 0.0 K/mm3 06/01/20 17:21 Promyelocytes # 0.0 K/mm3 06/01/20 17:21 Blast Cells # 0.0 K/mm3 06/01/20 17:21 WBC Morphology Not Reportable 06/01/20 17:21 Hypersegmented Neuts Not Reportable 06/01/20 17:21 Hyposegmented Neuts Not Reportable 06/01/20 17:21 Hypogranular Neuts Not Reportable 06/01/20 17:21 Smudge Cells Not Reportable 06/01/20 17:21 Toxic Granulation Not Reportable 06/01/20 17:21 Toxic Vacuolation Not Reportable 06/01/20 17:21 Dohle Bodies Not Reportable 06/01/20 17:21 Pelger-Huet Anomaly Not Reportable 06/01/20 17:21 Alda Rods Not Reportable 06/01/20 17:21 Platelet Estimate Not Reportable 06/01/20 17:21 Clumped Platelets Not Reportable 06/01/20 17:21 Plt Clumps, EDTA Not Reportable 06/01/20 17:21 Large Platelets Not Reportable 06/01/20 17:21 Giant Platelets Not Reportable 06/01/20 17:21 Platelet Satelliting Not Reportable 06/01/20 17:21 Plt Morphology Comment Not Reportable 06/01/20 17:21 RBC Morphology Not Reportable 06/01/20 17:21 Dimorphic RBCs Not Reportable 06/01/20 17:21 Polychromasia Not Reportable 06/01/20 17:21 Hypochromasia 1+ 06/01/20 17:21 Poikilocytosis Not Reportable 06/01/20 17:21 Anisocytosis Few 06/01/20 17:21 Microcytosis Few 06/01/20 17:21 Macrocytosis Not Reportable 06/01/20 17:21 Spherocytes Not Reportable 06/01/20 17:21 Pappenheimer Bodies Not Reportable 06/01/20 17:21 Sickle Cells Not Reportable 06/01/20 17:21 Target Cells Not Reportable 06/01/20 17:21 Tear Drop Cells Not Reportable 06/01/20 17:21 Ovalocytes Not Reportable 06/01/20 17:21 Helmet Cells Not Reportable 06/01/20 17:21 [place] Bodies Not Reportable 06/01/20 17:21 [place] Rings Not Reportable 06/01/20 17:21 [place] Cells Not Reportable 06/01/20 17:21 Bite Cells Not Reportable 06/01/20 17:21 Crenated Cell Not Reportable 06/01/20 17:21 Elliptocytes Not Reportable 06/01/20 17:21 Acanthocytes (Spur) Not Reportable 06/01/20 17:21 Rouleaux Not Reportable 06/01/20 17:21 Hemoglobin C Crystals Not Reportable 06/01/20 17:21 Schistocytes Not Reportable 06/01/20 17:21 Malaria parasites Not Reportable 06/01/20 17:21 [place] Bodies Not Reportable 06/01/20 17:21 Hem Pathologist Commnt No 06/01/20 17:21 PT 14.3 Sec. (12.2-14.9) 06/02/20 00:14 INR 1.10 (0.87-1.13) 06/02/20 00:14 APTT 30.1 Sec. (24.2-36.6) 06/02/20 00:14 D-Dimer 1105.43 ng/mlDDU (0-234) H 06/01/20 17:21 Heparin Anti-Xa Level 0.27 U.I./ml (0.3-0.7) L 06/02/20 15:06 Sodium 145 mmol/L (137-145) 06/01/20 17:21 Potassium 4.5 mmol/L (3.6-5.0) 06/01/20 17:21 Chloride 106.7 mmol/L (98-107) 06/01/20 17:21 Carbon Dioxide 26 mmol/L (22-30) 06/01/20 17:21 Anion Gap 17 mmol/L 06/01/20 17:21 BUN 24 mg/dL (7-17) H 06/01/20 17:21 Creatinine 0.9 mg/dL (0.6-1.2) 06/01/20 17:21 Estimated GFR > 60 ml/min 06/01/20 17:21 BUN/Creatinine Ratio 27 % 06/01/20 17:21 Glucose 134 mg/dL (65-100) H 06/01/20 17:21 Glucose 135 mg/dL (65-100) H 06/01/20 17:21 Lactic Acid 1.10 mmol/L (0.7-2.0) 06/01/20 20:21 Calcium 9.2 mg/dL (8.4-10.2) 06/01/20 17:21 Ferritin > 2000.0 ng/mL (10.0-200.0) H 06/01/20 17:21 Total Bilirubin 0.60 mg/dL (0.1-1.2) 06/01/20 17:21 AST 20 units/L (5-40) 06/01/20 17:21 ALT 16 units/L (7-56) 06/01/20 17:21 Alkaline Phosphatase 113 units/L (35-129) 06/01/20 17:21 Lactate Dehydrogenase 203 units/L (91-180) H 06/01/20 17:21 Total Creatine Kinase 121 units/L (30-135) 06/02/20 07:08 CK-MB (CK-2) 1.8 ng/mL (0.0-4.0) 06/02/20 07:08 CK-MB (CK-2) Rel Index 1.4 (0-4) 06/02/20 07:08 Troponin T < 0.010 ng/mL (0.00-0.029) 06/02/20 07:08 C-Reactive Protein 5.40 mg/dL (0.00-1.30) H 06/01/20 17:21 Total Protein 8.1 g/dL (6.3-8.2) 06/01/20 17:21 Albumin 3.4 g/dL (3.9-5) L 06/01/20 17:21 Albumin/Globulin Ratio 0.7 % 06/01/20 17:21 Procalcitonin < 0.05 ng/mL (<0.15) 06/01/20 17:21 TSH 3.070 mlU/mL (0.270-4.200) 06/01/20 17:21 Free T4 1.55 ng/dL (0.76-1.46) H 06/01/20 17:21 Urine Color Yellow (Yellow) 06/01/20 Unknown Urine Turbidity Turbid (Clear) 06/01/20 Unknown Urine pH 5.0 (5.0-7.0) 06/01/20 Unknown Ur Specific [place] 1.013 (1.003-1.030) 06/01/20 Unknown Urine Protein 100 mg/dl mg/dL (Negative) 06/01/20 Unknown Urine Glucose (UA) Neg mg/dL (Negative) 06/01/20 Unknown Urine Ketones Neg mg/dL (Negative) 06/01/20 Unknown Urine Blood Mod (Negative) 06/01/20 Unknown Urine Nitrite Neg (Negative) 06/01/20 Unknown Urine Bilirubin Neg (Negative) 06/01/20 Unknown Urine Urobilinogen < 2.0 mg/dL (<2.0) 06/01/20 Unknown Ur Leukocyte Esterase Lg (Negative) 06/01/20 Unknown Urine WBC (Auto) > 182.0 /HPF (0.0-6.0) H 06/01/20 Unknown Urine RBC (Auto) 72.0 /HPF (0.0-6.0) 06/01/20 Unknown Urine WBC Clumps 3+ /HPF 06/01/20 Unknown Urine Mucus 2+ /HPF 06/01/20 Unknown Urine Yeast (Budding) 3+ /HPF 06/01/20 Unknown Coronavirus (PCR) Positive (Negative) A 06/02/20 Unknown Microbiology: Microbiology 06/01/20 17:21 Peripheral/Venous Blood Culture - Preliminary Coag Negative Staphylococcus 06/01/20 17:21 Peripheral/Venous Blood Culture - Preliminary NO GROWTH AFTER 24 HOURS Serrano/IV: Voiding Method Indwelling Catheter IV Catheter Type [Left Peripheral IV Antecubital] IV Catheter Type [Left Forearm INT / Saline Lock ] IV Catheter Type [Right Hand] INT / Saline Lock Active Medications - Current Medications Current Medications: Generic Name Dose Route Start Last Admin Trade Name Freq PRN Reason Stop Dose Admin Acetaminophen 650 mg 06/01/20 21:59 Tylenol PO Q4H PRN Pain, Mild (1-3) Sodium Chloride 1,000 mls @ 75 mls/hr 06/01/20 22:00 06/02/20 22:47 Nacl 0.9% 1000 Ml IV 75 mls/hr DIRECT NHI Administration Heparin Sodium/Sodium Chloride 25,000 unit in 500 mls @ 23 mls/hr 06/01/20 23:00 06/02/20 22:48 Heparin/ 0.45% Nacl-25,000 Unit/500 Ml IV 1,050 units/hr TITR NHI 21 mls/hr Administration Protocol 1,150 UNITS/HR Aztreonam 1 gm in 50 mls @ 50 mls/hr 06/02/20 10:00 06/03/20 10:17 Azactam/Ns 1 Gm/50 Ml IV 50 mls/hr Q12HR NHI Administration
--- NOTE | 2020-06-03 15:48 | Consultation ---
History of Present Illness - Reason for Consult Consult date: 06/03/20 COVID-19 Requesting physician: ZOE NELSON - History of Present Illness The patient is an 85-year-old female, [facility] resident with dementia, history of cervical cancer, prior CVA was admitted due to change in mental status and hypoxia. Patient had tested positive for COVID-19 at the correction. Patient is nonverbal at baseline. Initial UA was concerning for UTI, patient was started on empiric antibiotics. Patient also tested positive for COVID-19. Patient initially had required nonrebreather mask which was weaned down to room air here. Patient has been afebrile here. Review of Systems: reviewed in the chart, unable to obtain directly due to PPE shortage and preservation Past History Past Medical History: hypothyroidism (DEMENTIA, CERVICAL CANCER), stroke, other (CERVICAL CANCER, DEMENTIA, HYPOTHYROIDISM) Past Surgical History: No surgical history Social history: other ([facility] AT [facility]) Family history: no significant family history Medications and Allergies Allergies Allergy/AdvReac Type Severity Reaction Status Date / Time Beta-Blockers Allergy Unknown Verified 06/01/20 23:50 (Beta-Adrenergic Bloc Cephalosporins Allergy Unknown Verified 06/01/20 23:50 Penicillins Allergy Unknown Verified 06/01/20 23:50 Home Medications Medication Instructions Recorded Confirmed Last Taken Type Acetaminophen [Tylenol] 650 mg PO Q6HR PRN 06/02/20 06/02/20 Unknown History Ascorbic Acid/Ascorbate Sodium 500 mg PO QDAY 06/02/20 06/02/20 Unknown History [Vitamin C 500 mg Wafer] Aspirin [Aspirin BABY CHEW TAB] 81 mg PO QDAY 06/02/20 06/02/20 Unknown History Cholecalciferol Vit D3 [Vitamin D3 4,000 unit PO QDAY 06/02/20 06/02/20 Unknown History 1,000 UNIT TAB] Colchicine 0.6 mg PO QDAY 06/02/20 06/02/20 Unknown History Famotidine [Pepcid] 10 mg PO QDAY 06/02/20 06/02/20 Unknown History Furosemide (10 mg/ml) [Lasix ORAL 1 ml PO QDAY 06/02/20 06/02/20 Unknown History SOLN] Ipratropium/Albuterol Sulfate 1 ampul IH Q6HR PRN 06/02/20 06/02/20 Unknown History [DUONEB *Not for PRN Use*] Levothyroxine [Synthroid] 125 mcg PO QAM 06/02/20 06/02/20 Unknown History Meloxicam [Mobic] 15 mg PO QDAY 06/02/20 06/02/20 Unknown History Memantine HCl 10 mg PO QDAY 06/02/20 06/02/20 Unknown History Montelukast [Singulair] 10 mg PO QPM 06/02/20 06/02/20 Unknown History Ondansetron [Zofran Odt] 4 mg PO Q8HR 06/02/20 06/02/20 Unknown History Potassium Chloride 20 meq PO Q48HR 06/02/20 06/02/20 Unknown History Sennosides/Docusate Sodium 100 mg PO BID 06/02/20 06/02/20 Unknown History [Docusate Sodium-Senna Tablet] Sennosides/Docusate Sodium 1 each PO BID 06/02/20 06/02/20 Unknown History [Senna-S 8.6-50 mg Tablet] amLODIPine [Norvasc] 10 mg PO DAILY 06/02/20 06/02/20 Unknown History guaiFENesin DM [Guaifenesin Dm 10 ml PO Q8HR PRN 06/02/20 06/02/20 Unknown History Syrup] Active Meds: Active Medications Acetaminophen (Tylenol) 650 mg PO Q4H PRN PRN Reason: Pain, Mild (1-3) Sodium Chloride (Nacl 0.9% 1000 Ml) 1,000 mls @ 75 mls/hr IV DIRECT NHI Last Admin: 06/02/20 22:47 Dose: 75 mls/hr Documented by: Heparin Sodium/Sodium Chloride (Heparin/ 0.45% Nacl-25,000 Unit/500 Ml) 25,000 unit in 500 mls @ 23 mls/hr IV TITR NHI; Protocol Last Admin: 06/02/20 22:48 Dose: 1,050 units/hr, 21 mls/hr Documented by: Aztreonam (Azactam/Ns 1 Gm/50 Ml) 1 gm in 50 mls @ 50 mls/hr IV Q12HR NHI Last Admin: 06/03/20 10:17 Dose: 50 mls/hr Documented by: Physical Examination - Physical Exam Narrative exam: Physical Exam (reviewed in chart due to PPE conservation) Constitutional: limited due to PPE conservation strategy Head, Ears, Nose: limited due to PPE conservation strategy Eyes: limited due to PPE conservation strategy Neck: limited due to PPE conservation strategy Oral: limited due to PPE conservation strategy Cardiovascular: limited due to PPE conservation strategy Respiratory: limited due to PPE conservation strategy GI: limited due to PPE conservation strategy Musculoskeletal: limited due to PPE conservation strategy Skin: limited due to PPE conservation strategy Hem/Lymphatic: limited due to PPE conservation strategy Psych: limited due to PPE conservation strategy Neurological: limited due to PPE conservation strategy - Constitutional Vitals: Vital Signs Temp Pulse Resp BP Pulse Ox 97.5 F L 79 48 H 160/85 97 06/03/20 11:50 06/03/20 11:50 06/03/20 11:50 06/03/20 11:50 06/03/20 11:50 Temperature -Last 24 Hours Temperature 97.5 F Temperature 97.4 F Temperature 97.0 F Results - Labs CBC & Chem 7: 06/03/20 05:02 06/01/20 17:21 Labs: Abnormal lab results 06/02/20 Range/Units 15:06 Heparin Anti-Xa Level 0.27 L (0.3-0.7) U.I./ml - Imaging and Cardiology Chest x-ray: report reviewed, image reviewed (no pneumonia) Assessment and Plan Cultures: Coronavirus PCR: Positive Blood culture: 1 out of 4 bottles with coag negative staph A/P: 85-year-old female, [facility] resident with dementia, history of cervical cancer, prior CVA was admitted due to change in mental status and hypoxia: #UTI, acute encephalopathy: Continue empiric aztreonam due to her multiple allergies. #COVID-19: No pneumonia on chest x-ray, no hypoxia. Markers elevated. #Coag negative staph bacteremia: 1 out of 4 bottles positive, likely contaminant. Recs: continue Aztreonam for now, follow up cultures Patient is not hypoxic, no indication for steroids or Remdesivir Trend ferritin, LDH, d-dimer, CRP every 2-3 days for risk stratification and to assess disease progression Yolande Webster MD, FACP [facility] ([facility] C: [phone] O: [phone] F: [phone]
[2020-06-03] MEDS: HEPARIN 5,000 UNIT/1 ML VIAL SUB-Q SCH ×2 (18:33→22:42)
[2020-06-03] MEDS: SODIUM CHLORIDE 0.9% 1000 ML 1,000 ML IV SCH ×2 (22:42→22:49)
[2020-06-04] MEDS: HEPARIN 5,000 UNIT/1 ML VIAL SUB-Q SCH ×3 (05:12→21:36)
[2020-06-04 06:08] LABS: Hematocrit 37.8 % (30.3-42.9); Hemoglobin 12.1 gm/dl (10.1-14.3); Mean Corpuscular HGB Conc 32 % (30-34); Mean Corpuscular Volume 83 fl (79-97); Platelet Count 257 K/mm3 (140-440); Red Blood Count 4.59 M/mm3 (3.65-5.03); Red Cell Distribution Width 14.7 % (13.2-15.2)
[2020-06-04 06:21] LABS: Alanine Aminotransferase 11 units/L (7-56); Albumin 2.8 g/dL (3.9-5); Blood Urea Nitrogen 11 mg/dL (7-17); Calcium 8.3 mg/dL (8.4-10.2); Hemolysis Index 9
[2020-06-04 06:45] LABS: BUN/Creatinine Ratio 22
[2020-06-04 06:55] LABS: Basophils % (Manual) 0 % (0.0-1.8); Monocytes % (Manual) 0 % (0.0-7.3); Total Cells Counted 100
[2020-06-04 06:56] LABS: Anisocytosis Few; Hypochromasia Few; Platelet Estimate Consistent w Auto; Schistocytes Rare
--- NOTE | 2020-06-04 09:52 | Progress Note ---
Assessment and Plan Atrial fibrillation longstanding persistent atrial fibrillation as she was also in AF during hospitalization at [facility] in 2010 rate control without AV sydnee blocking agents suggestive of underlying conduction system disease. Due to advanced age, frailty and multiple comorbidities, she is also a poor candidate for long-term oral anticoagulation. COVID 19 positive UTI Likely dementia Htn Conservative cardiac management. Subjective Date of service: 06/04/20 Interval history: Atrial fibrillation with a well controlled ventricular rate on telemetry. Objective Vital Signs Temp Pulse Resp BP Pulse Ox 06/04/20 06:03 98.3 F 70 20 169/82 99 06/03/20 23:11 98.4 F 81 22 166/82 99 06/03/20 17:26 97.8 F 78 19 163/88 98 06/03/20 11:50 97.5 F L 79 48 H 160/85 97 - Physical Examination Narrative exam: Deferred due to isolation procotol. - Labs and Meds Cardiac Enzymes 06/04/20 Range/Units 03:59 AST 23 (5-40) units/L CBC 06/04/20 Range/Units 03:59 WBC 5.4 (4.5-11.0) K/mm3 RBC 4.59 (3.65-5.03) M/mm3 Hgb 12.1 (10.1-14.3) gm/dl Hct 37.8 (30.3-42.9) % Plt Count 257 (140-440) K/mm3 Comprehensive Metabolic Panel 06/04/20 Range/Units 03:59 Sodium 142 (137-145) mmol/L Potassium 3.4 L D (3.6-5.0) mmol/L Chloride 106.8 (98-107) mmol/L Carbon Dioxide 23 (22-30) mmol/L BUN 11 (7-17) mg/dL Creatinine 0.5 L (0.6-1.2) mg/dL Glucose 89 (65-100) mg/dL Calcium 8.3 L (8.4-10.2) mg/dL AST 23 (5-40) units/L ALT 11 (7-56) units/L Alkaline Phosphatase 91 (35-129) units/L Total Protein 6.7 (6.3-8.2) g/dL Albumin 2.8 L (3.9-5) g/dL
[2020-06-04] MEDS: AZTREONAM/NS 1 GM/50 ML 1 GM/50 ML VIAL IV SCH ×2 (10:31→21:35)
--- NOTE | 2020-06-04 15:18 | Progress Note ---
Assessment and Plan Cultures: Coronavirus PCR: Positive Blood culture: 1 out of 4 bottles with coag negative staph A/P: 85-year-old female, detention resident with dementia, history of cervical cancer, prior CVA was admitted due to change in mental status and hypoxia: #UTI, acute encephalopathy: Continue empiric aztreonam due to her multiple allergies. #COVID-19: No pneumonia on chest x-ray, no hypoxia. Markers elevated. #Coag negative staph bacteremia: 1 out of 4 bottles positive, likely contaminant. Recs: continue Aztreonam for now, follow up urine culture Patient is not hypoxic, no indication for steroids or Remdesivir Trend ferritin, LDH, d-dimer, CRP every 2-3 days for risk stratification and to assess disease progression Yolande Webster MD, FACP [facility] ([facility] C: [phone] O: [phone] F: [phone] Subjective Date of service: 06/04/20 Interval history: No fever. on minimal oxygen. Objective - Exam Narrative Exam: Physical Exam (reviewed in chart due to PPE conservation) Constitutional: limited due to PPE conservation strategy Head, Ears, Nose: limited due to PPE conservation strategy Eyes: limited due to PPE conservation strategy Neck: limited due to PPE conservation strategy Oral: limited due to PPE conservation strategy Cardiovascular: limited due to PPE conservation strategy Respiratory: limited due to PPE conservation strategy GI: limited due to PPE conservation strategy Musculoskeletal: limited due to PPE conservation strategy Skin: limited due to PPE conservation strategy Hem/Lymphatic: limited due to PPE conservation strategy Psych: limited due to PPE conservation strategy Neurological: limited due to PPE conservation strategy - Constitutional Vitals: Vital Signs Temp Pulse Resp BP Pulse Ox 98.6 F 77 22 170/96 100 06/04/20 11:38 06/04/20 11:38 06/04/20 11:38 06/04/20 11:38 06/04/20 11:38 Temperature -Last 24 Hours Temperature 98.6 F Temperature 98.3 F Temperature 98.4 F Temperature 97.8 F - Labs CBC & Chem 7: 06/04/20 03:59 06/04/20 03:59 Labs: Abnormal lab results 06/03/20 06/04/20 06/04/20 Range/Units 16:15 03:59 03:59 MCH 27 L (28-32) pg Lymphocytes % (Manual) 36.0 H (13.4-35.0) % Heparin Anti-Xa Level 0.10 L (0.3-0.7) U.I./ml Potassium 3.4 L D (3.6-5.0) mmol/L Creatinine 0.5 L (0.6-1.2) mg/dL Calcium 8.3 L (8.4-10.2) mg/dL Albumin 2.8 L (3.9-5) g/dL
--- NOTE | 2020-06-04 21:09 | Progress Note ---
Assessment and Plan - Patient Problems (1) COVID-19 Current Visit: Yes Status: Acute Plan to address problem: COVID-19 protocol: Infectious disease service consulted, supportive care, pulmonary toilet. Isolation precautions, contact precautions. (2) Acute metabolic encephalopathy Current Visit: Yes Status: Acute Plan to address problem: CT scan head reviewed. Reveals chronic microvascular changes. No acute findings., Neurochecks, aspiration precautions, fall precautions, seizure precautions, IV fluid resuscitation therapy. (3) Debility Current Visit: Yes Status: Acute Plan to address problem: Supportive care, patient is at baseline level of function. (4) New onset atrial fibrillation Current Visit: Yes Status: Acute Plan to address problem: Rate control, supportive care. Cardiology team consulted. Will continue with current cardiac team recommendations. (5) Sacral ulcer Current Visit: Yes Status: Acute Plan to address problem: Wound care, supportive care. Every 2 turns. (6) UTI (urinary tract infection) Current Visit: Yes Status: Acute Qualifiers: Encounter type: subsequent encounter Plan to address problem: IV antibiotic therapy, supportive care. (7) DVT prophylaxis Current Visit: Yes Status: Acute Plan to address problem: SCD to bilateral lower extremities while in bed, prophylactic anticoagulation. (8) Advance care planning Current Visit: Yes Status: Acute Plan to address problem: Disease education conducted, patient is full code, prognosis discussed. +30 minutes. History Interval history: 85 YO Female HD #2 with Metabolic Encephalopathy, Dementia, UTI, Coronavirus Infection, Atrial Fib, Debility, Sacral. Patient is lethargic at time of my evaluation. Patient appears to be at baseline cognition and level of function. No reported nursing events. Patient resting. Hospitalist Physical - Constitutional Vitals: Temp Pulse Resp BP Pulse Ox 97.1 F L 73 20 170/81 98 06/04/20 16:35 06/04/20 16:35 06/04/20 16:35 06/04/20 16:35 06/04/20 16:35 General appearance: Present: no acute distress, other (elderly woman, confused) - EENT Eyes: Present: PERRL ENT: hearing decreased - Neck Neck: Present: supple - Respiratory Respiratory effort: normal Respiratory: bilateral: diminished - Cardiovascular Rhythm: regular Heart Sounds: Present: S1 & S2 - Extremities Extremities: no ischemia Extremity abnormal: edema Peripheral Pulses: within normal limits - Abdominal General gastrointestinal: soft, non-tender, non-distended - Integumentary Integumentary: Present: clear, dry - Psychiatric Psychiatric: no appropriate mood/affect, no intact judgment & insight, no memory intact - Neurologic Neurologic: CNII-XII intact, no gait normal HEART Score - HEART Score Age: > 65 Risk factors: 1-2 risk factors Troponin: Troponin T < 0.010 ng/mL (0.00-0.029) 06/02/20 07:08 Troponin: < normal limit - Critical Actions Critical Actions: 0-3 pts:0.9-1.7%risk of adverse cardiac event.Candidate for discharge Results - Labs CBC & Chem 7: 06/05/20 04:32 06/04/20 03:59 Labs: Laboratory Last Values WBC 5.4 K/mm3 (4.5-11.0) 06/04/20 03:59 RBC 4.59 M/mm3 (3.65-5.03) 06/04/20 03:59 Hgb 12.1 gm/dl (10.1-14.3) 06/04/20 03:59 Hct 37.8 % (30.3-42.9) 06/04/20 03:59 MCV 83 fl (79-97) 06/04/20 03:59 MCH 27 pg (28-32) L 06/04/20 03:59 MCHC 32 % (30-34) 06/04/20 03:59 RDW 14.7 % (13.2-15.2) 06/04/20 03:59 Plt Count 257 K/mm3 (140-440) 06/04/20 03:59 [place] % (Auto) Short Filler Bunch Machine Operator 06/04/20 03:59 Add Manual Diff Complete 06/04/20 03:59 Total Counted 100 06/04/20 03:59 Seg Neuts % (Manual) 60.0 % (40.0-70.0) 06/04/20 03:59 Band Neutrophils % 0 % 06/04/20 03:59 Lymphocytes % (Manual) 36.0 % (13.4-35.0) H 06/04/20 03:59 Reactive Lymphs % (Man) 0 % 06/04/20 03:59 Monocytes % (Manual) 0 % (0.0-7.3) 06/04/20 03:59 Eosinophils % (Manual) 4.0 % (0.0-4.3) 06/04/20 03:59 Basophils % (Manual) 0 % (0.0-1.8) 06/04/20 03:59 Metamyelocytes % 0 % 06/04/20 03:59 Myelocytes % 0 % 06/04/20 03:59 Promyelocytes % 0 % 06/04/20 03:59 Blast Cells % 0 % 06/04/20 03:59 Nucleated RBC % Not Reportable 06/04/20 03:59 Seg Neutrophils # Man 3.2 K/mm3 (1.8-7.7) 06/04/20 03:59 Band Neutrophils # 0.0 K/mm3 06/04/20 03:59 Lymphocytes # (Manual) 1.9 K/mm3 (1.2-5.4) 06/04/20 03:59 Abs React Lymphs (Man) 0.0 K/mm3 06/04/20 03:59 Monocytes # (Manual) 0.0 K/mm3 (0.0-0.8) 06/04/20 03:59 Eosinophils # (Manual) 0.2 K/mm3 (0.0-0.4) 06/04/20 03:59 Basophils # (Manual) 0.0 K/mm3 (0.0-0.1) 06/04/20 03:59 Metamyelocytes # 0.0 K/mm3 06/04/20 03:59 Myelocytes # 0.0 K/mm3 06/04/20 03:59 Promyelocytes # 0.0 K/mm3 06/04/20 03:59 Blast Cells # 0.0 K/mm3 06/04/20 03:59 WBC Morphology Not Reportable 06/04/20 03:59 Hypersegmented Neuts Not Reportable 06/04/20 03:59 Hyposegmented Neuts Not Reportable 06/04/20 03:59 Hypogranular Neuts Not Reportable 06/04/20 03:59 Smudge Cells Not Reportable 06/04/20 03:59 Toxic Granulation Not Reportable 06/04/20 03:59 Toxic Vacuolation Not Reportable 06/04/20 03:59 Dohle Bodies Not Reportable 06/04/20 03:59 Pelger-Huet Anomaly Not Reportable 06/04/20 03:59 Alda Rods Not Reportable 06/04/20 03:59 Platelet Estimate Consistent w auto 06/04/20 03:59 Clumped Platelets Not Reportable 06/04/20 03:59 Plt Clumps, EDTA Not Reportable 06/04/20 03:59 Large Platelets Not Reportable 06/04/20 03:59 Giant Platelets Not Reportable 06/04/20 03:59 Platelet Satelliting Not Reportable 06/04/20 03:59 Plt Morphology Comment Not Reportable 06/04/20 03:59 RBC Morphology Not Reportable 06/04/20 03:59 Dimorphic RBCs Not Reportable 06/04/20 03:59 Polychromasia Not Reportable 06/04/20 03:59 Hypochromasia Few 06/04/20 03:59 Poikilocytosis Not Reportable 06/04/20 03:59 Anisocytosis Few 06/04/20 03:59 Microcytosis Not Reportable 06/04/20 03:59 Macrocytosis Not Reportable 06/04/20 03:59 Spherocytes Not Reportable 06/04/20 03:59 Pappenheimer Bodies Not Reportable 06/04/20 03:59 Sickle Cells Not Reportable 06/04/20 03:59 Target Cells Not Reportable 06/04/20 03:59 Tear Drop Cells Not Reportable 06/04/20 03:59 Ovalocytes Not Reportable 06/04/20 03:59 Helmet Cells Not Reportable 06/04/20 03:59 [place] Bodies Not Reportable 06/04/20 03:59 [place] Rings Not Reportable 06/04/20 03:59 Raquel Cells Not Reportable 06/04/20 03:59 Bite Cells Not Reportable 06/04/20 03:59 Crenated Cell Not Reportable 06/04/20 03:59 Elliptocytes Not Reportable 06/04/20 03:59 Acanthocytes (Spur) Not Reportable 06/04/20 03:59 Rouleaux Not Reportable 06/04/20 03:59 Hemoglobin C Crystals Not Reportable 06/04/20 03:59 Schistocytes Rare 06/04/20 03:59 Malaria parasites Not Reportable 06/04/20 03:59 [place] Bodies Not Reportable 06/04/20 03:59 Hem Pathologist Commnt No 06/04/20 03:59 PT 14.3 Sec. (12.2-14.9) 06/02/20 00:14 INR 1.10 (0.87-1.13) 06/02/20 00:14 APTT 30.1 Sec. (24.2-36.6) 06/02/20 00:14 D-Dimer 1105.43 ng/mlDDU (0-234) H 06/01/20 17:21 Heparin Anti-Xa Level 0.10 U.I./ml (0.3-0.7) L 06/03/20 16:15 Sodium 142 mmol/L (137-145) 06/04/20 03:59 Potassium 3.4 mmol/L (3.6-5.0) L D 06/04/20 03:59 Chloride 106.8 mmol/L (98-107) 06/04/20 03:59 Carbon Dioxide 23 mmol/L (22-30) 06/04/20 03:59 Anion Gap 16 mmol/L 06/04/20 03:59 BUN 11 mg/dL (7-17) 06/04/20 03:59 Creatinine 0.5 mg/dL (0.6-1.2) L 06/04/20 03:59 Estimated GFR > 60 ml/min 06/04/20 03:59 BUN/Creatinine Ratio 22 % 06/04/20 03:59 Glucose 89 mg/dL (65-100) 06/04/20 03:59 POC Glucose 85 (70-105) 06/04/20 12:03 Lactic Acid 1.10 mmol/L (0.7-2.0) 06/01/20 20:21 Calcium 8.3 mg/dL (8.4-10.2) L 06/04/20 03:59 Ferritin > 2000.0 ng/mL (10.0-200.0) H 06/01/20 17:21 Total Bilirubin 0.60 mg/dL (0.1-1.2) 06/04/20 03:59 AST 23 units/L (5-40) 06/04/20 03:59 ALT 11 units/L (7-56) 06/04/20 03:59 Alkaline Phosphatase 91 units/L (35-129) 06/04/20 03:59 Lactate Dehydrogenase 203 units/L (91-180) H 06/01/20 17:21 Total Creatine Kinase 121 units/L (30-135) 06/02/20 07:08 CK-MB (CK-2) 1.8 ng/mL (0.0-4.0) 06/02/20 07:08 CK-MB (CK-2) Rel Index 1.4 (0-4) 06/02/20 07:08 Troponin T < 0.010 ng/mL (0.00-0.029) 06/02/20 07:08 C-Reactive Protein 5.40 mg/dL (0.00-1.30) H 06/01/20 17:21 Total Protein 6.7 g/dL (6.3-8.2) 06/04/20 03:59 Albumin 2.8 g/dL (3.9-5) L 06/04/20 03:59 Albumin/Globulin Ratio 0.7 % 06/04/20 03:59 Procalcitonin < 0.05 ng/mL (<0.15) 06/01/20 17:21 TSH 3.070 mlU/mL (0.270-4.200) 06/01/20 17:21 Free T4 1.55 ng/dL (0.76-1.46) H 06/01/20 17:21 Urine Color Yellow (Yellow) 06/01/20 Unknown Urine Turbidity Turbid (Clear) 06/01/20 Unknown Urine pH 5.0 (5.0-7.0) 06/01/20 Unknown Ur Specific Meredith 1.013 (1.003-1.030) 06/01/20 Unknown Urine Protein 100 mg/dl mg/dL (Negative) 06/01/20 Unknown Urine Glucose (UA) Neg mg/dL (Negative) 06/01/20 Unknown Urine Ketones Neg mg/dL (Negative) 06/01/20 Unknown Urine Blood Mod (Negative) 06/01/20 Unknown Urine Nitrite Neg (Negative) 06/01/20 Unknown Urine Bilirubin Neg (Negative) 06/01/20 Unknown Urine Urobilinogen < 2.0 mg/dL (<2.0) 06/01/20 Unknown Ur Leukocyte Esterase Lg (Negative) 06/01/20 Unknown Urine WBC (Auto) > 182.0 /HPF (0.0-6.0) H 06/01/20 Unknown Urine RBC (Auto) 72.0 /HPF (0.0-6.0) 06/01/20 Unknown Urine WBC Clumps 3+ /HPF 06/01/20 Unknown Urine Mucus 2+ /HPF 06/01/20 Unknown Urine Yeast (Budding) 3+ /HPF 06/01/20 Unknown Coronavirus (PCR) Positive (Negative) A 06/02/20 Unknown Microbiology: Microbiology 06/03/20 16:15 Peripheral/Venous Blood Culture - Preliminary NO GROWTH AFTER 24 HOURS 06/03/20 16:15 Peripheral/Venous Blood Culture - Preliminary NO GROWTH AFTER 24 HOURS 06/01/20 17:21 Peripheral/Venous Blood Culture - Preliminary NO GROWTH AFTER 72 HOURS Serrano/IV: Voiding Method Indwelling Catheter IV Catheter Type [Left Peripheral IV Antecubital] IV Catheter Type [Left Forearm INT / Saline Lock ] IV Catheter Type [Right Hand] INT / Saline Lock Active Medications - Current Medications Current Medications: Generic Name Dose Route Start Last Admin Trade Name Freq PRN Reason Stop Dose Admin Acetaminophen 650 mg 06/01/20 21:59 Tylenol PO Q4H PRN Pain, Mild (1-3) Heparin Sodium (Porcine) 5,000 unit 06/03/20 16:45 06/04/20 12:59 Heparin SUB-Q 5,000 unit Q8HR NHI Administration Sodium Chloride 1,000 mls @ 75 mls/hr 06/01/20 22:00 06/03/20 22:49 Nacl 0.9% 1000 Ml IV 75 mls/hr DIRECT NHI Administration Aztreonam 1 gm in 50 mls @ 50 mls/hr 06/02/20 10:00 06/04/20 10:31 Azactam/Ns 1 Gm/50 Ml IV 50 mls/hr Q12HR NHI Administration
[2020-06-04] MEDS: SODIUM CHLORIDE 0.9% 1000 ML 1,000 ML IV SCH (21:35)
[2020-06-05 06:16] LABS: Hematocrit 38.9 % (30.3-42.9); Hemoglobin 12.6 gm/dl (10.1-14.3)
[2020-06-05] MEDS: HEPARIN 5,000 UNIT/1 ML VIAL SUB-Q SCH ×3 (06:23→22:56)
[2020-06-05] MEDS: AZTREONAM/NS 1 GM/50 ML 1 GM/50 ML VIAL IV SCH ×2 (10:09→22:55)
[2020-06-05] MEDS: SODIUM CHLORIDE 0.9% 1000 ML 1,000 ML IV SCH (13:20)
--- NOTE | 2020-06-05 14:04 | Progress Note ---
Assessment and Plan Cultures: Coronavirus PCR: Positive Blood culture: 1 out of 4 bottles with coag negative staph A/P: 85-year-old female, senior care resident with dementia, history of cervical cancer, prior CVA was admitted due to change in mental status and hypoxia: #UTI, acute encephalopathy: Continue empiric aztreonam due to her multiple allergies. #COVID-19: No pneumonia on chest x-ray, no hypoxia. Markers elevated. #Coag negative staph bacteremia: 1 out of 4 bottles positive, likely contaminant. Recs: Last day of Aztreonam today (D5) Patient is not hypoxic, no indication for steroids or Remdesivir Trend ferritin, LDH, d-dimer, CRP every 2-3 days for risk stratification and to assess disease progression Yolande Webster MD, FACP [facility] C: [phone] O: [phone] F: [phone] Subjective Date of service: 06/05/20 Interval history: No fever. On minimal oxygen. Objective - Exam Narrative Exam: Physical Exam (reviewed in chart due to PPE conservation) Constitutional: limited due to PPE conservation strategy Head, Ears, Nose: limited due to PPE conservation strategy Eyes: limited due to PPE conservation strategy Neck: limited due to PPE conservation strategy Oral: limited due to PPE conservation strategy Cardiovascular: limited due to PPE conservation strategy Respiratory: limited due to PPE conservation strategy GI: limited due to PPE conservation strategy Musculoskeletal: limited due to PPE conservation strategy Skin: limited due to PPE conservation strategy Hem/Lymphatic: limited due to PPE conservation strategy Psych: limited due to PPE conservation strategy Neurological: limited due to PPE conservation strategy - Constitutional Vitals: Vital Signs Temp Pulse Resp BP Pulse Ox 98.4 F 88 18 157/87 99 06/05/20 11:13 06/05/20 11:13 06/05/20 11:13 06/05/20 11:13 06/05/20 11:13 Temperature -Last 24 Hours Temperature 98.4 F Temperature 97.8 F Temperature 98.4 F Temperature 97.1 F - Labs CBC & Chem 7: 06/05/20 04:32 06/04/20 03:59 Labs: Abnormal lab results 06/04/20 06/05/20 Range/Units 16:45 11:28 POC Glucose 113 H 128 H (70-105)
--- NOTE | 2020-06-05 16:40 | Progress Note ---
Assessment and Plan - Patient Problems (1) COVID-19 Current Visit: Yes Status: Acute Plan to address problem: COVID-19 protocol: Infectious disease service consulted, supportive care, pulmonary toilet. Isolation precautions, contact precautions. (2) Acute metabolic encephalopathy Current Visit: Yes Status: Acute Plan to address problem: CT scan head reviewed. Reveals chronic microvascular changes. No acute findings., Neurochecks, aspiration precautions, fall precautions, seizure precautions, IV fluid resuscitation therapy. (3) Debility Current Visit: Yes Status: Acute Plan to address problem: Supportive care, patient is at baseline level of function. (4) New onset atrial fibrillation Current Visit: Yes Status: Acute Plan to address problem: Rate control, supportive care. Cardiology team consulted. Will continue with current cardiac team recommendations. (5) Sacral ulcer Current Visit: Yes Status: Acute Plan to address problem: Wound care, supportive care. Every 2 turns. (6) UTI (urinary tract infection) Current Visit: Yes Status: Acute Qualifiers: Encounter type: subsequent encounter Plan to address problem: IV antibiotic therapy, supportive care. (7) DVT prophylaxis Current Visit: Yes Status: Acute Plan to address problem: SCD to bilateral lower extremities while in bed, prophylactic anticoagulation. (8) Advance care planning Current Visit: Yes Status: Acute Plan to address problem: Disease education conducted, patient is full code, prognosis discussed. +30 minutes. History Interval history: 85 YO Female HD #3 with Metabolic Encephalopathy, Dementia, UTI, Coronavirus Infection, Atrial Fib, Debility, Sacral. Patient is lethargic at time of my evaluation. Patient appears to be at baseline cognition and level of function. No reported nursing events. Patient resting in bed. Hospitalist Physical - Constitutional Vitals: Temp Pulse Resp BP Pulse Ox 98.4 F 88 18 157/87 99 06/05/20 11:13 06/05/20 11:13 06/05/20 11:13 06/05/20 11:13 06/05/20 11:13 General appearance: Present: no acute distress, other (elderly woman, confused) - EENT Eyes: Present: PERRL ENT: hearing decreased - Neck Neck: Present: supple - Respiratory Respiratory effort: normal Respiratory: bilateral: diminished - Cardiovascular Rhythm: irregularly irregular Heart Sounds: Present: S1 & S2 - Extremities Extremities: no ischemia Extremity abnormal: edema Peripheral Pulses: within normal limits - Abdominal General gastrointestinal: soft, non-tender, non-distended - Integumentary Integumentary: Present: clear, dry - Psychiatric Psychiatric: no appropriate mood/affect, no intact judgment & insight, no memory intact - Neurologic Neurologic: CNII-XII intact, no moves all extremities, gait normal HEART Score - HEART Score Age: > 65 Risk factors: 1-2 risk factors Troponin: Troponin T < 0.010 ng/mL (0.00-0.029) 06/02/20 07:08 Troponin: < normal limit - Critical Actions Critical Actions: 0-3 pts:0.9-1.7%risk of adverse cardiac event.Candidate for discharge Results - Labs CBC & Chem 7: 06/05/20 04:32 06/04/20 03:59 Labs: Laboratory Last Values WBC 5.4 K/mm3 (4.5-11.0) 06/04/20 03:59 RBC 4.59 M/mm3 (3.65-5.03) 06/04/20 03:59 Hgb 12.6 gm/dl (10.1-14.3) 06/05/20 04:32 Hct 38.9 % (30.3-42.9) 06/05/20 04:32 MCV 83 fl (79-97) 06/04/20 03:59 MCH 27 pg (28-32) L 06/04/20 03:59 MCHC 32 % (30-34) 06/04/20 03:59 RDW 14.7 % (13.2-15.2) 06/04/20 03:59 Plt Count 228 K/mm3 (140-440) 06/05/20 04:32 Gilliam % (Auto) Investment Consultant 06/04/20 03:59 Add Manual Diff Complete 06/04/20 03:59 Total Counted 100 06/04/20 03:59 Seg Neuts % (Manual) 60.0 % (40.0-70.0) 06/04/20 03:59 Band Neutrophils % 0 % 06/04/20 03:59 Lymphocytes % (Manual) 36.0 % (13.4-35.0) H 06/04/20 03:59 Reactive Lymphs % (Man) 0 % 06/04/20 03:59 Monocytes % (Manual) 0 % (0.0-7.3) 06/04/20 03:59 Eosinophils % (Manual) 4.0 % (0.0-4.3) 06/04/20 03:59 Basophils % (Manual) 0 % (0.0-1.8) 06/04/20 03:59 Metamyelocytes % 0 % 06/04/20 03:59 Myelocytes % 0 % 06/04/20 03:59 Promyelocytes % 0 % 06/04/20 03:59 Blast Cells % 0 % 06/04/20 03:59 Nucleated RBC % Not Reportable 06/04/20 03:59 Seg Neutrophils # Man 3.2 K/mm3 (1.8-7.7) 06/04/20 03:59 Band Neutrophils # 0.0 K/mm3 06/04/20 03:59 Lymphocytes # (Manual) 1.9 K/mm3 (1.2-5.4) 06/04/20 03:59 Abs React Lymphs (Man) 0.0 K/mm3 06/04/20 03:59 Monocytes # (Manual) 0.0 K/mm3 (0.0-0.8) 06/04/20 03:59 Eosinophils # (Manual) 0.2 K/mm3 (0.0-0.4) 06/04/20 03:59 Basophils # (Manual) 0.0 K/mm3 (0.0-0.1) 06/04/20 03:59 Metamyelocytes # 0.0 K/mm3 06/04/20 03:59 Myelocytes # 0.0 K/mm3 06/04/20 03:59 Promyelocytes # 0.0 K/mm3 06/04/20 03:59 Blast Cells # 0.0 K/mm3 06/04/20 03:59 WBC Morphology Not Reportable 06/04/20 03:59 Hypersegmented Neuts Not Reportable 06/04/20 03:59 Hyposegmented Neuts Not Reportable 06/04/20 03:59 Hypogranular Neuts Not Reportable 06/04/20 03:59 Smudge Cells Not Reportable 06/04/20 03:59 Toxic Granulation Not Reportable 06/04/20 03:59 Toxic Vacuolation Not Reportable 06/04/20 03:59 Dohle Bodies Not Reportable 06/04/20 03:59 Pelger-Huet Anomaly Not Reportable 06/04/20 03:59 Alda Rods Not Reportable 06/04/20 03:59 Platelet Estimate Consistent w auto 06/04/20 03:59 Clumped Platelets Not Reportable 06/04/20 03:59 Plt Clumps, EDTA Not Reportable 06/04/20 03:59 Large Platelets Not Reportable 06/04/20 03:59 Giant Platelets Not Reportable 06/04/20 03:59 Platelet Satelliting Not Reportable 06/04/20 03:59 Plt Morphology Comment Not Reportable 06/04/20 03:59 RBC Morphology Not Reportable 06/04/20 03:59 Dimorphic RBCs Not Reportable 06/04/20 03:59 Polychromasia Not Reportable 06/04/20 03:59 Hypochromasia Few 06/04/20 03:59 Poikilocytosis Not Reportable 06/04/20 03:59 Anisocytosis Few 06/04/20 03:59 Microcytosis Not Reportable 06/04/20 03:59 Macrocytosis Not Reportable 06/04/20 03:59 Spherocytes Not Reportable 06/04/20 03:59 Pappenheimer Bodies Not Reportable 06/04/20 03:59 Sickle Cells Not Reportable 06/04/20 03:59 Target Cells Not Reportable 06/04/20 03:59 Tear Drop Cells Not Reportable 06/04/20 03:59 Ovalocytes Not Reportable 06/04/20 03:59 Helmet Cells Not Reportable 06/04/20 03:59 Infante-Hamill Bodies Not Reportable 06/04/20 03:59 [place] Rings Not Reportable 06/04/20 03:59 Raquel Cells Not Reportable 06/04/20 03:59 Bite Cells Not Reportable 06/04/20 03:59 Crenated Cell Not Reportable 06/04/20 03:59 Elliptocytes Not Reportable 06/04/20 03:59 Acanthocytes (Spur) Not Reportable 06/04/20 03:59 Rouleaux Not Reportable 06/04/20 03:59 Hemoglobin C Crystals Not Reportable 06/04/20 03:59 Schistocytes Rare 06/04/20 03:59 Malaria parasites Not Reportable 06/04/20 03:59 Kentrell Bodies Not Reportable 06/04/20 03:59 Hem Pathologist Commnt No 06/04/20 03:59 PT 14.3 Sec. (12.2-14.9) 06/02/20 00:14 INR 1.10 (0.87-1.13) 06/02/20 00:14 APTT 30.1 Sec. (24.2-36.6) 06/02/20 00:14 D-Dimer 1105.43 ng/mlDDU (0-234) H 06/01/20 17:21 Heparin Anti-Xa Level 0.10 U.I./ml (0.3-0.7) L 06/03/20 16:15 Sodium 142 mmol/L (137-145) 06/04/20 03:59 Potassium 3.4 mmol/L (3.6-5.0) L D 06/04/20 03:59 Chloride 106.8 mmol/L (98-107) 06/04/20 03:59 Carbon Dioxide 23 mmol/L (22-30) 06/04/20 03:59 Anion Gap 16 mmol/L 06/04/20 03:59 BUN 11 mg/dL (7-17) 06/04/20 03:59 Creatinine 0.5 mg/dL (0.6-1.2) L 06/04/20 03:59 Estimated GFR > 60 ml/min 06/04/20 03:59 BUN/Creatinine Ratio 22 % 06/04/20 03:59 Glucose 89 mg/dL (65-100) 06/04/20 03:59 POC Glucose 128 (70-105) H 06/05/20 11:28 Lactic Acid 1.10 mmol/L (0.7-2.0) 06/01/20 20:21 Calcium 8.3 mg/dL (8.4-10.2) L 06/04/20 03:59 Ferritin > 2000.0 ng/mL (10.0-200.0) H 06/01/20 17:21 Total Bilirubin 0.60 mg/dL (0.1-1.2) 06/04/20 03:59 AST 23 units/L (5-40) 06/04/20 03:59 ALT 11 units/L (7-56) 06/04/20 03:59 Alkaline Phosphatase 91 units/L (35-129) 06/04/20 03:59 Lactate Dehydrogenase 203 units/L (91-180) H 06/01/20 17:21 Total Creatine Kinase 121 units/L (30-135) 06/02/20 07:08 CK-MB (CK-2) 1.8 ng/mL (0.0-4.0) 06/02/20 07:08 CK-MB (CK-2) Rel Index 1.4 (0-4) 06/02/20 07:08 Troponin T < 0.010 ng/mL (0.00-0.029) 06/02/20 07:08 C-Reactive Protein 5.40 mg/dL (0.00-1.30) H 06/01/20 17:21 Total Protein 6.7 g/dL (6.3-8.2) 06/04/20 03:59 Albumin 2.8 g/dL (3.9-5) L 06/04/20 03:59 Albumin/Globulin Ratio 0.7 % 06/04/20 03:59 Procalcitonin < 0.05 ng/mL (<0.15) 06/01/20 17:21 TSH 3.070 mlU/mL (0.270-4.200) 06/01/20 17:21 Free T4 1.55 ng/dL (0.76-1.46) H 06/01/20 17:21 Urine Color Yellow (Yellow) 06/01/20 Unknown Urine Turbidity Turbid (Clear) 06/01/20 Unknown Urine pH 5.0 (5.0-7.0) 06/01/20 Unknown Ur Specific [place] 1.013 (1.003-1.030) 06/01/20 Unknown Urine Protein 100 mg/dl mg/dL (Negative) 06/01/20 Unknown Urine Glucose (UA) Neg mg/dL (Negative) 06/01/20 Unknown Urine Ketones Neg mg/dL (Negative) 06/01/20 Unknown Urine Blood Mod (Negative) 06/01/20 Unknown Urine Nitrite Neg (Negative) 06/01/20 Unknown Urine Bilirubin Neg (Negative) 06/01/20 Unknown Urine Urobilinogen < 2.0 mg/dL (<2.0) 06/01/20 Unknown Ur Leukocyte Esterase Lg (Negative) 06/01/20 Unknown Urine WBC (Auto) > 182.0 /HPF (0.0-6.0) H 06/01/20 Unknown Urine RBC (Auto) 72.0 /HPF (0.0-6.0) 06/01/20 Unknown Urine WBC Clumps 3+ /HPF 06/01/20 Unknown Urine Mucus 2+ /HPF 06/01/20 Unknown Urine Yeast (Budding) 3+ /HPF 06/01/20 Unknown Coronavirus (PCR) Positive (Negative) A 06/02/20 Unknown Microbiology: Microbiology 06/03/20 16:15 Peripheral/Venous Blood Culture - Preliminary NO GROWTH AFTER 24 HOURS 06/03/20 16:15 Peripheral/Venous Blood Culture - Preliminary NO GROWTH AFTER 24 HOURS 06/01/20 17:21 Peripheral/Venous Blood Culture - Preliminary NO GROWTH AFTER 72 HOURS Serrano/IV: Voiding Method Indwelling Catheter IV Catheter Type [Left Peripheral IV Antecubital] IV Catheter Type [Left Forearm INT / Saline Lock ] IV Catheter Type [Right Hand] INT / Saline Lock Active Medications - Current Medications Current Medications: Generic Name Dose Route Start Last Admin Trade Name Freq PRN Reason Stop Dose Admin Acetaminophen 650 mg 06/01/20 21:59 Tylenol PO Q4H PRN Pain, Mild (1-3) Heparin Sodium (Porcine) 5,000 unit 06/03/20 16:45 06/05/20 13:21 Heparin SUB-Q 5,000 unit Q8HR NHI Administration Sodium Chloride 1,000 mls @ 75 mls/hr 06/01/20 22:00 06/05/20 13:20 Nacl 0.9% 1000 Ml IV 75 mls/hr DIRECT NHI Administration Aztreonam 1 gm in 50 mls @ 50 mls/hr 06/02/20 10:00 06/05/20 10:09 Azactam/Ns 1 Gm/50 Ml IV 50 mls/hr Q12HR NHI Administration
[2020-06-06] MEDS: SODIUM CHLORIDE 0.9% 1000 ML 1,000 ML IV SCH ×2 (06:00→22:53)
[2020-06-06] MEDS: HEPARIN 5,000 UNIT/1 ML VIAL SUB-Q SCH ×3 (06:26→22:33)
--- NOTE | 2020-06-06 09:38 | Progress Note ---
Assessment and Plan Atrial fibrillation, paroxysmal spontaneously reverted to sinus rhythm. TSH 3.0 COVID 19 positive UTI Likely dementia Htn Will obtain a 12 lead ECG for paroxysmal atrial fibrillation. Avoid AV sydnee blocking agents due to underlying conduction system disease. Due to advanced age, frailty and multiple comorbidities, she is also a poor candidate for long-term oral anticoagulation. Otherwise, conservative cardiac management. Subjective Date of service: 06/06/20 Interval history: Patient has reverted to sinus rhythm on telemetry. Objective Vital Signs Temp Pulse Resp BP Pulse Ox 06/06/20 05:00 98.4 F 71 20 164/79 100 06/05/20 23:17 98.2 F 95 H 20 157/90 97 06/05/20 19:02 98.0 F 79 19 176/87 100 06/05/20 11:13 98.4 F 88 18 157/87 99 - Physical Examination Narrative exam: Deferred due to isolation procotol.
[2020-06-06] MEDS: AZTREONAM/NS 1 GM/50 ML 1 GM/50 ML VIAL IV SCH (10:17)
--- NOTE | 2020-06-06 13:15 | Progress Note ---
Assessment and Plan Cultures: Coronavirus PCR: Positive Blood culture: 1 out of 4 bottles with coag negative staph A/P: 85-year-old female, [facility] resident with dementia, history of cervical cancer, prior CVA was admitted due to change in mental status and hypoxia: #UTI, acute encephalopathy: Continue empiric aztreonam due to her multiple allergies. #COVID-19: No pneumonia on chest x-ray, no hypoxia. Markers elevated. #Coag negative staph bacteremia: 1 out of 4 bottles positive, likely contaminant. Recs: Aztreonam course complete, order d/tia Patient is not hypoxic, no indication for steroids or Remdesivir Yolande Webster MD, FACP [facility] ([facility] C: [phone] O: [phone] F: [phone] Subjective Date of service: 06/06/20 Interval history: No fever. On minimal oxygen without significant hypoxia. Objective - Exam Narrative Exam: Physical Exam (reviewed in chart due to PPE conservation) Constitutional: limited due to PPE conservation strategy Head, Ears, Nose: limited due to PPE conservation strategy Eyes: limited due to PPE conservation strategy Neck: limited due to PPE conservation strategy Oral: limited due to PPE conservation strategy Cardiovascular: limited due to PPE conservation strategy Respiratory: limited due to PPE conservation strategy GI: limited due to PPE conservation strategy Musculoskeletal: limited due to PPE conservation strategy Skin: limited due to PPE conservation strategy Hem/Lymphatic: limited due to PPE conservation strategy Psych: limited due to PPE conservation strategy Neurological: limited due to PPE conservation strategy - Constitutional Vitals: Vital Signs Temp Pulse Resp BP Pulse Ox 98.4 F 71 20 164/79 100 06/06/20 05:00 06/06/20 05:00 06/06/20 05:00 06/06/20 05:00 06/06/20 05:00 Temperature -Last 24 Hours Temperature 98.4 F Temperature 98.2 F Temperature 98.0 F - Labs CBC & Chem 7: 06/05/20 04:32 06/04/20 03:59
[2020-06-07] MEDS: HEPARIN 5,000 UNIT/1 ML VIAL SUB-Q SCH (06:01)
[2020-06-07 06:30] LABS: Hematocrit 39.5 % (30.3-42.9); Hemoglobin 12.9 gm/dl (10.1-14.3)
--- NOTE | 2020-06-07 09:40 | Progress Note ---
Assessment and Plan Atrial fibrillation, paroxysmal spontaneously reverted to sinus rhythm. TSH 3.0 COVID 19 positive UTI Likely dementia Htn Recommendations: Avoid AV sydnee blocking agents due to underlying conduction system disease. Due to advanced age, frailty and multiple comorbidities, she is also a poor candidate for long-term oral anticoagulation. Subjective Date of service: 06/07/20 Interval history: No cardiac events reported. Objective Vital Signs Temp Pulse Resp BP Pulse Ox 06/07/20 05:10 98.0 F 16 184/71 06/06/20 22:14 98.0 F 82 24 175/81 98 06/06/20 16:34 97.0 F L 78 22 172/82 100 06/06/20 12:02 98.1 F 79 22 170/90 99 - Physical Examination Neck: Positive: neck supple Abdomen: Positive: Soft, Active Bowel Sounds Skin: Positive: Clear Extremities: Absent: edema - Labs and Meds CBC 06/07/20 Range/Units 05:45 Hgb 12.9 (10.1-14.3) gm/dl Hct 39.5 (30.3-42.9) % Plt Count 234 (140-440) K/mm3
--- NOTE | 2020-06-07 10:34 | Progress Note ---
Assessment and Plan - Patient Problems (1) COVID-19 Current Visit: Yes Status: Acute Plan to address problem: COVID-19 protocol: Infectious disease service consulted, supportive care, pulmonary toilet. Isolation precautions, contact precautions. (2) Acute metabolic encephalopathy Current Visit: Yes Status: Acute Plan to address problem: CT scan head reviewed. Reveals chronic microvascular changes. No acute findings., Neurochecks, aspiration precautions, fall precautions, seizure precautions, IV fluid resuscitation therapy. (3) Debility Current Visit: Yes Status: Acute Plan to address problem: Supportive care, patient is at baseline level of function. (4) New onset atrial fibrillation Current Visit: Yes Status: Acute Plan to address problem: Rate control, supportive care. Cardiology team consulted. Will continue with current cardiac team recommendations. (5) Sacral ulcer Current Visit: Yes Status: Acute Plan to address problem: Wound care, supportive care. Every 2 turns. (6) UTI (urinary tract infection) Current Visit: Yes Status: Acute Qualifiers: Encounter type: subsequent encounter Plan to address problem: resolved with antibiotic therapy (7) DVT prophylaxis Current Visit: Yes Status: Acute Plan to address problem: SCD to bilateral lower extremities while in bed, prophylactic anticoagulation. (8) Advance care planning Current Visit: Yes Status: Acute Plan to address problem: Disease education conducted, patient is full code, prognosis discussed. +30 minutes. History Interval history: 85 YO Female HD #4 with Metabolic Encephalopathy, Dementia, UTI, Asymptomatic Coronavirus Infection, Atrial Fib, Debility, Sacral. Patient is lethargic at time of my evaluation. Patient appears to be at baseline cognition and level of function. No reported nursing events. Patient resting in bed. D/C planning in am. Hospitalist Physical - Constitutional Vitals: Temp Pulse Resp BP Pulse Ox 98.0 F 82 16 184/71 98 06/07/20 05:10 06/06/20 22:14 06/07/20 05:10 06/07/20 05:10 06/06/20 22:14 General appearance: Present: no acute distress, other (elderly woman, confused) - EENT Eyes: Present: PERRL ENT: hearing decreased - Neck Neck: Present: supple - Respiratory Respiratory: bilateral: CTA - Cardiovascular Rhythm: irregularly irregular - Extremities Extremities: no ischemia Peripheral Pulses: within normal limits - Abdominal General gastrointestinal: soft, non-tender, non-distended - Integumentary Integumentary: Present: clear, dry - Psychiatric Psychiatric: no intact judgment & insight, no memory intact - Neurologic Neurologic: moves all extremities, no gait normal HEART Score - HEART Score Age: > 65 Risk factors: 1-2 risk factors Troponin: Troponin T < 0.010 ng/mL (0.00-0.029) 06/02/20 07:08 Troponin: < normal limit - Critical Actions Critical Actions: 0-3 pts:0.9-1.7%risk of adverse cardiac event.Candidate for discharge Results - Labs CBC & Chem 7: 06/07/20 05:45 06/04/20 03:59 Labs: Laboratory Last Values WBC 5.4 K/mm3 (4.5-11.0) 06/04/20 03:59 RBC 4.59 M/mm3 (3.65-5.03) 06/04/20 03:59 Hgb 12.9 gm/dl (10.1-14.3) 06/07/20 05:45 Hct 39.5 % (30.3-42.9) 06/07/20 05:45 MCV 83 fl (79-97) 06/04/20 03:59 MCH 27 pg (28-32) L 06/04/20 03:59 MCHC 32 % (30-34) 06/04/20 03:59 RDW 14.7 % (13.2-15.2) 06/04/20 03:59 Plt Count 234 K/mm3 (140-440) 06/07/20 05:45 Wilson % (Auto) Qa Consultant 06/04/20 03:59 Add Manual Diff Complete 06/04/20 03:59 Total Counted 100 06/04/20 03:59 Seg Neuts % (Manual) 60.0 % (40.0-70.0) 06/04/20 03:59 Band Neutrophils % 0 % 06/04/20 03:59 Lymphocytes % (Manual) 36.0 % (13.4-35.0) H 06/04/20 03:59 Reactive Lymphs % (Man) 0 % 06/04/20 03:59 Monocytes % (Manual) 0 % (0.0-7.3) 06/04/20 03:59 Eosinophils % (Manual) 4.0 % (0.0-4.3) 06/04/20 03:59 Basophils % (Manual) 0 % (0.0-1.8) 06/04/20 03:59 Metamyelocytes % 0 % 06/04/20 03:59 Myelocytes % 0 % 06/04/20 03:59 Promyelocytes % 0 % 06/04/20 03:59 Blast Cells % 0 % 06/04/20 03:59 Nucleated RBC % Not Reportable 06/04/20 03:59 Seg Neutrophils # Man 3.2 K/mm3 (1.8-7.7) 06/04/20 03:59 Band Neutrophils # 0.0 K/mm3 06/04/20 03:59 Lymphocytes # (Manual) 1.9 K/mm3 (1.2-5.4) 06/04/20 03:59 Abs React Lymphs (Man) 0.0 K/mm3 06/04/20 03:59 Monocytes # (Manual) 0.0 K/mm3 (0.0-0.8) 06/04/20 03:59 Eosinophils # (Manual) 0.2 K/mm3 (0.0-0.4) 06/04/20 03:59 Basophils # (Manual) 0.0 K/mm3 (0.0-0.1) 06/04/20 03:59 Metamyelocytes # 0.0 K/mm3 06/04/20 03:59 Myelocytes # 0.0 K/mm3 06/04/20 03:59 Promyelocytes # 0.0 K/mm3 06/04/20 03:59 Blast Cells # 0.0 K/mm3 06/04/20 03:59 WBC Morphology Not Reportable 06/04/20 03:59 Hypersegmented Neuts Not Reportable 06/04/20 03:59 Hyposegmented Neuts Not Reportable 06/04/20 03:59 Hypogranular Neuts Not Reportable 06/04/20 03:59 Smudge Cells Not Reportable 06/04/20 03:59 Toxic Granulation Not Reportable 06/04/20 03:59 Toxic Vacuolation Not Reportable 06/04/20 03:59 Dohle Bodies Not Reportable 06/04/20 03:59 Pelger-Huet Anomaly Not Reportable 06/04/20 03:59 Alda Rods Not Reportable 06/04/20 03:59 Platelet Estimate Consistent w auto 06/04/20 03:59 Clumped Platelets Not Reportable 06/04/20 03:59 Plt Clumps, EDTA Not Reportable 06/04/20 03:59 Large Platelets Not Reportable 06/04/20 03:59 Giant Platelets Not Reportable 06/04/20 03:59 Platelet Satelliting Not Reportable 06/04/20 03:59 Plt Morphology Comment Not Reportable 06/04/20 03:59 RBC Morphology Not Reportable 06/04/20 03:59 Dimorphic RBCs Not Reportable 06/04/20 03:59 Polychromasia Not Reportable 06/04/20 03:59 Hypochromasia Few 06/04/20 03:59 Poikilocytosis Not Reportable 06/04/20 03:59 Anisocytosis Few 06/04/20 03:59 Microcytosis Not Reportable 06/04/20 03:59 Macrocytosis Not Reportable 06/04/20 03:59 Spherocytes Not Reportable 06/04/20 03:59 Pappenheimer Bodies Not Reportable 06/04/20 03:59 Sickle Cells Not Reportable 06/04/20 03:59 Target Cells Not Reportable 06/04/20 03:59 Tear Drop Cells Not Reportable 06/04/20 03:59 Ovalocytes Not Reportable 06/04/20 03:59 Helmet Cells Not Reportable 06/04/20 03:59 Infante-Dushore Bodies Not Reportable 06/04/20 03:59 [place] Rings Not Reportable 06/04/20 03:59 Raquel Cells Not Reportable 06/04/20 03:59 Bite Cells Not Reportable 06/04/20 03:59 Crenated Cell Not Reportable 06/04/20 03:59 Elliptocytes Not Reportable 06/04/20 03:59 Acanthocytes (Spur) Not Reportable 06/04/20 03:59 Rouleaux Not Reportable 06/04/20 03:59 Hemoglobin C Crystals Not Reportable 06/04/20 03:59 Schistocytes Rare 06/04/20 03:59 Malaria parasites Not Reportable 06/04/20 03:59 Kentrell Bodies Not Reportable 06/04/20 03:59 Hem Pathologist Commnt No 06/04/20 03:59 PT 14.3 Sec. (12.2-14.9) 06/02/20 00:14 INR 1.10 (0.87-1.13) 06/02/20 00:14 APTT 30.1 Sec. (24.2-36.6) 06/02/20 00:14 D-Dimer 1105.43 ng/mlDDU (0-234) H 06/01/20 17:21 Heparin Anti-Xa Level 0.10 U.I./ml (0.3-0.7) L 06/03/20 16:15 Sodium 142 mmol/L (137-145) 06/04/20 03:59 Potassium 3.4 mmol/L (3.6-5.0) L D 06/04/20 03:59 Chloride 106.8 mmol/L (98-107) 06/04/20 03:59 Carbon Dioxide 23 mmol/L (22-30) 06/04/20 03:59 Anion Gap 16 mmol/L 06/04/20 03:59 BUN 11 mg/dL (7-17) 06/04/20 03:59 Creatinine 0.5 mg/dL (0.6-1.2) L 06/04/20 03:59 Estimated GFR > 60 ml/min 06/04/20 03:59 BUN/Creatinine Ratio 22 % 06/04/20 03:59 Glucose 89 mg/dL (65-100) 06/04/20 03:59 POC Glucose 95 (70-105) 06/05/20 16:12 Lactic Acid 1.10 mmol/L (0.7-2.0) 06/01/20 20:21 Calcium 8.3 mg/dL (8.4-10.2) L 06/04/20 03:59 Ferritin > 2000.0 ng/mL (10.0-200.0) H 06/01/20 17:21 Total Bilirubin 0.60 mg/dL (0.1-1.2) 06/04/20 03:59 AST 23 units/L (5-40) 06/04/20 03:59 ALT 11 units/L (7-56) 06/04/20 03:59 Alkaline Phosphatase 91 units/L (35-129) 06/04/20 03:59 Lactate Dehydrogenase 203 units/L (91-180) H 06/01/20 17:21 Total Creatine Kinase 121 units/L (30-135) 06/02/20 07:08 CK-MB (CK-2) 1.8 ng/mL (0.0-4.0) 06/02/20 07:08 CK-MB (CK-2) Rel Index 1.4 (0-4) 06/02/20 07:08 Troponin T < 0.010 ng/mL (0.00-0.029) 06/02/20 07:08 C-Reactive Protein 5.40 mg/dL (0.00-1.30) H 06/01/20 17:21 Total Protein 6.7 g/dL (6.3-8.2) 06/04/20 03:59 Albumin 2.8 g/dL (3.9-5) L 06/04/20 03:59 Albumin/Globulin Ratio 0.7 % 06/04/20 03:59 Procalcitonin < 0.05 ng/mL (<0.15) 06/01/20 17:21 TSH 3.070 mlU/mL (0.270-4.200) 06/01/20 17:21 Free T4 1.55 ng/dL (0.76-1.46) H 06/01/20 17:21 Urine Color Yellow (Yellow) 06/01/20 Unknown Urine Turbidity Turbid (Clear) 06/01/20 Unknown Urine pH 5.0 (5.0-7.0) 06/01/20 Unknown Ur Specific [place] 1.013 (1.003-1.030) 06/01/20 Unknown Urine Protein 100 mg/dl mg/dL (Negative) 06/01/20 Unknown Urine Glucose (UA) Neg mg/dL (Negative) 06/01/20 Unknown Urine Ketones Neg mg/dL (Negative) 06/01/20 Unknown Urine Blood Mod (Negative) 06/01/20 Unknown Urine Nitrite Neg (Negative) 06/01/20 Unknown Urine Bilirubin Neg (Negative) 06/01/20 Unknown Urine Urobilinogen < 2.0 mg/dL (<2.0) 06/01/20 Unknown Ur Leukocyte Esterase Lg (Negative) 06/01/20 Unknown Urine WBC (Auto) > 182.0 /HPF (0.0-6.0) H 06/01/20 Unknown Urine RBC (Auto) 72.0 /HPF (0.0-6.0) 06/01/20 Unknown Urine WBC Clumps 3+ /HPF 06/01/20 Unknown Urine Mucus 2+ /HPF 06/01/20 Unknown Urine Yeast (Budding) 3+ /HPF 06/01/20 Unknown Coronavirus (PCR) Positive (Negative) A 06/02/20 Unknown Microbiology: Microbiology 06/03/20 16:15 Peripheral/Venous Blood Culture - Preliminary NO GROWTH AFTER 72 HOURS 06/03/20 16:15 Peripheral/Venous Blood Culture - Preliminary NO GROWTH AFTER 72 HOURS 06/01/20 17:21 Peripheral/Venous Blood Culture - Final NO GROWTH AFTER 5 DAYS Serrano/IV: Voiding Method Indwelling Catheter IV Catheter Type [Left Peripheral IV Antecubital] IV Catheter Type [Left Forearm INT / Saline Lock ] IV Catheter Type [Right Hand] INT / Saline Lock Active Medications - Current Medications Current Medications: Generic Name Dose Route Start Last Admin Trade Name Freq PRN Reason Stop Dose Admin Acetaminophen 650 mg 06/01/20 21:59 Tylenol PO Q4H PRN Pain, Mild (1-3) Heparin Sodium (Porcine) 5,000 unit 06/03/20 16:45 06/07/20 06:01 Heparin SUB-Q 5,000 unit Q8HR NHI Administration Sodium Chloride 1,000 mls @ 75 mls/hr 06/01/20 22:00 06/06/20 22:53 Nacl 0.9% 1000 Ml IV 75 mls/hr DIRECT NHI Administration
--- NOTE | 2020-06-07 10:34 | Discharge Summary ---
Providers - Providers Date of Admission: 06/03/20 16:28 Attending physician: MARIA E IKMBALL 06/02/20 06:00 Consult to Physician [CONS] Routine Comment: Consulting Provider: AUDREY TUTTLE Physician Instructions: Reason For Exam: NEW ONSET A. FIB 06/03/20 15:17 Consult to Physician [CONS] Routine Comment: Consulting Provider: LUIS MANUEL HYATT Physician Instructions: Reason For Exam: COVID-19 06/05/20 11:14 Speech Therapy Evaluation and Treat [CONS] Routine Reason For Exam: dysphagia 06/05/20 11:32 Physical Therapy Evaluation and Treat [CONS] Routine Comment: Reason For Exam: debility Primary care physician: COMMUNICATION TECHNICIAN Hospitalization Condition: Fair Disposition: DC-01 TO HOME OR SELFCARE - Discharge Diagnoses (1) COVID-19 Status: Acute (2) Acute metabolic encephalopathy Status: Acute (3) Debility Status: Acute (4) New onset atrial fibrillation Status: Acute (5) Sacral ulcer Status: Acute (6) UTI (urinary tract infection) Status: Acute Qualifiers: Encounter type: subsequent encounter (7) DVT prophylaxis Status: Acute (8) Advance care planning Status: Acute Exam - Constitutional Vitals: Temp Pulse Resp BP Pulse Ox 98.0 F 82 16 184/71 98 06/07/20 05:10 06/06/20 22:14 06/07/20 05:10 06/07/20 05:10 06/06/20 22:14 Plan Follow up with: ELAINE KISER MD [Primary Care Provider] - 7 Days
[2020-06-07 12:23] VITALS: BP 160/77
[2020-06-07] MEDS: SODIUM CHLORIDE 0.9% 1000 ML 1,000 ML IV SCH (12:24)
--- NOTE | 2020-06-07 15:23 | Progress Note ---
Assessment and Plan Cultures: Coronavirus PCR: Positive Blood culture: 1 out of 4 bottles with coag negative staph A/P: 85-year-old female, retirement resident with dementia, history of cervical cancer, prior CVA was admitted due to change in mental status and hypoxia: #UTI, acute encephalopathy: completed empiric aztreonam due to her multiple allergies. #COVID-19: No pneumonia on chest x-ray, no hypoxia. Patient on minimal oxygen. #Coag negative staph bacteremia: 1 out of 4 bottles positive, likely contam inant. Recs: continue off abx Yolande Webster MD, FACP [facility] C: [phone] O: [phone] F: [phone] Subjective Date of service: 06/07/20 Interval history: No fever. On minimal oxygen without significant hypoxia with stable respiratory status. Objective - Exam Narrative Exam: Physical Exam (reviewed in chart due to PPE conservation) Constitutional: limited due to PPE conservation strategy Head, Ears, Nose: limited due to PPE conservation strategy Eyes: limited due to PPE conservation strategy Neck: limited due to PPE conservation strategy Oral: limited due to PPE conservation strategy Cardiovascular: limited due to PPE conservation strategy Respiratory: limited due to PPE conservation strategy GI: limited due to PPE conservation strategy Musculoskeletal: limited due to PPE conservation strategy Skin: limited due to PPE conservation strategy Hem/Lymphatic: limited due to PPE conservation strategy Psych: limited due to PPE conservation strategy Neurological: limited due to PPE conservation strategy - Constitutional Vitals: Vital Signs Temp Pulse Resp BP Pulse Ox 97.7 F 20 L 20 160/77 100 06/07/20 12:00 06/07/20 12:00 06/07/20 12:00 06/07/20 12:00 06/07/20 12:00 Temperature -Last 24 Hours Temperature 97.7 F Temperature 97.7 F Temperature 98.0 F Temperature 98.0 F Temperature 97.0 F - Labs CBC & Chem 7: 06/07/20 05:45 06/04/20 03:59
== END 2020-06-07 17:20 | DRG 177 ==
LOC: ED 16:03 → INTOOBSV 19:25 → 3A 19:25 → UNDOADMOB 19:25 → OBSVTOIN 19:25 → 3A 06-02 02:07 → OBSVTOIN 06-03 16:28 → 3A 06-03 16:28
PROVIDERS: ADMIT Internal Medicine; ATTEND Internal Medicine
DX: U07.1 COVID-19 (principal); G93.41 Metabolic encephalopathy; N39.0 Urinary tract infection, site not specified; L89.159 Pressure ulcer of sacral region, unspecified stage; I10 Essential (primary) hypertension; E03.9 Hypothyroidism, unspecified; F03.90 Unspecified dementia, unspecified severity, without behavioral disturbance, psychotic disturbance, mood disturbance, and anxiety; I48.0 Paroxysmal atrial fibrillation; R31.9 Hematuria, unspecified; Z86.73 Personal history of transient ischemic attack (TIA), and cerebral infarction without residual deficits; Z85.41 Personal history of malignant neoplasm of cervix uteri; Z88.1 Allergy status to other antibiotic agents; Z88.0 Allergy status to penicillin; Z88.8 Allergy status to other drugs, medicaments and biological substances; Z79.82 Long term (current) use of aspirin; Z79.01 Long term (current) use of anticoagulants; Z79.899 Other long term (current) drug therapy
CPT/HCPCS: 36415; 70450; 71045; 80053; 81001; 82140; 82550; 82553; 82728; 82947; 82962; 83615; 84145; 84439; 84443; 84484; 85007; 85014; 85018; 85025; 85049; 85379; 85520; 85610; 85730; 86140; 87040; 93005; G0378; J1644; J7030; U0003-CS

== ENCOUNTER 2020-10-06 04:04 | Emergency (ER) | payer MEDICARE ==
[2020-10-06] MEDS ORDERED: SODIUM CHLORIDE 0.9% 500 ML 500 ML IV ONE (05:44)
--- NOTE | 2020-10-06 06:16 | XRay Report ---
CHEST 1 VIEW INDICATION: possible Sepsis. COMPARISON: 06/01/2020 FINDINGS: SUPPORT DEVICES: None. HEART: Within normal limits. LUNGS/PLEURA: No acute air space or interstitial disease. ADDITIONAL FINDINGS: None. IMPRESSION: 1. No acute findings. Signer Name: Richard Tinsley MD Signed: 10/06/2020 6:12 AM Workstation Name: [id number]
[2020-10-06 06:48] LABS: Hemoglobin 11.7 gm/dl (10.1-14.3); Mean Corpuscular HGB Conc 32 % (30-34); Mean Corpuscular Volume 84 fl (79-97); Platelet Count 332 K/mm3 (140-440); Red Blood Count 4.42 M/mm3 (3.65-5.03); Red Cell Distribution Width 16.8 % (13.2-15.2)
[2020-10-06 06:55] LABS: INR 1.19 (0.87-1.13)
[2020-10-06 07:08] LABS: Albumin 2.4 g/dL (3.9-5)
[2020-10-06] MEDS ORDERED: SODIUM CHLORIDE 0.9% 1000 ML IV SOLN IV ONE (07:12)
--- NOTE | 2020-10-06 07:17 | Emergency Department Report ---
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 Patient uses 2 L nasal cannula at baseline as per triage note. Unable to obtain any other history of present illness from patient due to underlying dementia, nonverbal status, and CVA. Patient presents with a indwelling Serrano catheter with minimal urine output. As per medical record review pt was covid positive during May 2020 admission. - Related Data Home Medications Medication Instructions Recorded Confirmed Last Taken Acetaminophen [Tylenol] 650 mg PO Q12H PRN 06/02/20 10/06/20 Unknown Ascorbic Acid/Ascorbate Sodium 500 mg PO QDAY 06/02/20 10/06/20 Unknown [Vitamin C 500 mg Wafer] Aspirin [Aspirin BABY CHEW TAB] 81 mg PO QDAY 06/02/20 10/06/20 Unknown Cholecalciferol Vit D3 [Vitamin D3 1,000 unit PO QDAY 06/02/20 10/06/20 Unknown 1,000 UNIT TAB] Colchicine 0.6 mg PO QDAY 06/02/20 10/06/20 Unknown Famotidine [Pepcid] 10 mg PO QDAY 06/02/20 10/06/20 Unknown Furosemide (10 mg/ml) [Lasix ORAL 1 ml PO QDAY 06/02/20 10/06/20 Unknown SOLN] Ipratropium/Albuterol Sulfate 1 ampul IH Q6HR PRN 06/02/20 10/06/20 Unknown [DUONEB *Not for PRN Use*] Levothyroxine [Synthroid] 125 mcg PO QAM 06/02/20 10/06/20 Unknown Meloxicam [Mobic] 15 mg PO QDAY 06/02/20 10/06/20 Unknown Memantine HCl 10 mg PO QDAY 06/02/20 10/06/20 Unknown Montelukast [Singulair] 10 mg PO QPM 06/02/20 10/06/20 Unknown Ondansetron [Zofran Odt] 4 mg PO Q8HR 06/02/20 10/06/20 Unknown Sennosides/Docusate Sodium 100 mg PO BID 06/02/20 10/06/20 Unknown [Docusate Sodium-Senna Tablet] Sennosides/Docusate Sodium 1 each PO BID 06/02/20 10/06/20 Unknown [Senna-S 8.6-50 mg Tablet] amLODIPine [Norvasc] 10 mg PO DAILY 06/02/20 10/06/20 Unknown guaiFENesin DM [Guaifenesin Dm 10 ml PO Q8HR PRN 06/02/20 10/06/20 Unknown Syrup] Allergies Allergy/AdvReac Type Severity Reaction Status Date / Time Beta-Blockers Allergy Unknown Verified 06/01/20 23:50 (Beta-Adrenergic Bloc Cephalosporins Allergy Unknown Verified 06/01/20 23:50 Penicillins Allergy Unknown Verified 06/01/20 23:50 ED Review of Systems ROS: Stated complaint: ABDOMINAL DISTENTION Other details as noted in HPI Comment: Unobtainable due to pts medical conditions ED Past Medical Hx - Past Medical History Previous Medical History?: Yes Hx Hypertension: Yes Hx CVA: Yes (Left side Hemiplegia) Hx GERD: Yes Hx Arthritis: Yes (Polyosteoarthritis) Hx Seizures: Yes Hx Dementia: Yes (late stage, non-verbal) Additional medical history: hypothyroid, PVD, Right and Left hand contractures, Nutritional Defiencies, Neoplasm of the Cervix, Vitamin D Defiency, Constipation, Sacral Decubitus, Viral Conjunctivitis, Supplemental Oxygen Dependence, Generalized Muscle weakness, 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 COVID-05 June 2020. Paroxysmal atrial fibrillation - Social History Smoking Status: Unknown if ever smoked - Medications Home Medications: Home Medications Medication Instructions Recorded Confirmed Last Taken Type Acetaminophen [Tylenol] 650 mg PO Q12H PRN 06/02/20 10/06/20 Unknown History Ascorbic Acid/Ascorbate Sodium 500 mg PO QDAY 06/02/20 10/06/20 Unknown History [Vitamin C 500 mg Wafer] Aspirin [Aspirin BABY CHEW TAB] 81 mg PO QDAY 06/02/20 10/06/20 Unknown History Cholecalciferol Vit D3 [Vitamin D3 1,000 unit PO QDAY 06/02/20 10/06/20 Unknown History 1,000 UNIT TAB] Colchicine 0.6 mg PO QDAY 06/02/20 10/06/20 Unknown History Famotidine [Pepcid] 10 mg PO QDAY 06/02/20 10/06/20 Unknown History Furosemide (10 mg/ml) [Lasix ORAL 1 ml PO QDAY 06/02/20 10/06/20 Unknown History SOLN] Ipratropium/Albuterol Sulfate 1 ampul IH Q6HR PRN 06/02/20 10/06/20 Unknown History [DUONEB *Not for PRN Use*] Levothyroxine [Synthroid] 125 mcg PO QAM 06/02/20 10/06/20 Unknown History Meloxicam [Mobic] 15 mg PO QDAY 06/02/20 10/06/20 Unknown History Memantine HCl 10 mg PO QDAY 06/02/20 10/06/20 Unknown History Montelukast [Singulair] 10 mg PO QPM 06/02/20 10/06/20 Unknown History Ondansetron [Zofran Odt] 4 mg PO Q8HR 06/02/20 10/06/20 Unknown History Sennosides/Docusate Sodium 100 mg PO BID 06/02/20 10/06/20 Unknown History [Docusate Sodium-Senna Tablet] Sennosides/Docusate Sodium 1 each PO BID 06/02/20 10/06/20 Unknown History [Senna-S 8.6-50 mg Tablet] amLODIPine [Norvasc] 10 mg PO DAILY 06/02/20 10/06/20 Unknown History guaiFENesin DM [Guaifenesin Dm 10 ml PO Q8HR PRN 06/02/20 10/06/20 Unknown History Syrup] ED Physical Exam - General Limitations: Altered Mental Status, Physical Limitation, Other - Other Other exam information: General: No acute distress Head: Atraumatic Eyes: normal appearance Neck: Normal appearance, no midline tenderness Chest: Clear to auscultation bilaterally CV: Tachycardic regular rhythm Abdomen: Soft, normal bowel sounds, no grimace with palpation, nondistended, no rebound or guarding. No peg Back: Normal inspection Extremity: Right arm edema, ulceration to left foot Neuro: Alert, nonverbal, left arm contracted but positive movement. Minimal movement of all other extremity. Psych: Appropriate behavior ED Course Vital Signs 10/06/20 10/06/20 10/06/20 05:06 05:16 05:30 Temperature Pulse Rate 115 H 118 H Respiratory 21 25 H Rate Blood Pressure O2 Sat by Pulse 89 100 100 Oximetry 10/06/20 10/06/20 10/06/20 05:33 05:46 06:00 Temperature 100.2 F H Pulse Rate 116 H 111 H 114 H Respiratory 28 H 26 H 28 H Rate Blood Pressure 138/73 138/73 138/73 O2 Sat by Pulse 100 100 99 Oximetry 10/06/20 10/06/20 10/06/20 06:15 06:31 06:45 Temperature Pulse Rate 117 H 115 H 115 H Respiratory 30 H 25 H 27 H Rate Blood Pressure 138/73 138/73 138/73 O2 Sat by Pulse 100 100 100 Oximetry 10/06/20 07:33 Temperature Pulse Rate Respiratory 24 Rate Blood Pressure O2 Sat by Pulse 100 Oximetry - Reevaluation(s) Reevaluation #1: 10/06/20 9 AM Serrano catheter placed by RN. She reports that patient original Serrano catheter was not inserted and the catheter was outside of the urethra. New Serrano placed without incident and UA sent - Consultations Consultation #1: 10/06/20 09:00 Case discussed with interventional radiologist on-call Dr. Vega. He states since we do not have urology circulation supervisor patient will need to be transferred to a facility with urology coverage Consultation #2: 10/06/20 09:05 Case discussed with [facility] transfer service information provided. Awaiting urology callback for acceptance of transfer 10/06/20 09:43 [facility] contacted and they have urology however, they do not have any [facility] beds available 10/06/20 09:[address] Saucedo urologist on-call for [facility] has agreed to accept patient in consultation but recommends admission to hospitalist service to manage her other chronic and acute issues. Awaiting callback from hospitalist service at [facility] for acceptance. 10/06/20 10:19 Case d/w Yessenia hospitalist at [facility] excepted patient for transfer. ED Medical Decision Making - Lab Data Result diagrams: 10/06/20 06:05 10/06/20 06:05 Lab Results 12/10/06/20 10/06/20 Range/Units 06:05 06:05 06:05 WBC 23.9 H (4.5-11.0) K/mm3 RBC 4.42 (3.65-5.03) M/mm3 Hgb 11.7 (10.1-14.3) gm/dl Hct 37.0 (30.3-42.9) % MCV 84 (79-97) fl MCH 27 L (28-32) pg MCHC 32 (30-34) % RDW 16.8 H (13.2-15.2) % Plt Count 332 (140-440) K/mm3 PT 14.9 (12.2-14.9) Sec. INR 1.19 H (0.87-1.13) VBG pH (7.320-7.420) Sodium 139 (137-145) mmol/L Potassium 4.7 (3.6-5.0) mmol/L Chloride 105.3 (98-107) mmol/L Carbon Dioxide 23 (22-30) mmol/L Anion Gap 15 mmol/L BUN 36 H (7-17) mg/dL Creatinine 1.1 (0.6-1.2) mg/dL Estimated GFR 57 ml/min BUN/Creatinine Ratio 33 % Glucose 186 H (65-100) mg/dL Lactic Acid (0.7-2.0) mmol/L Calcium 9.0 (8.4-10.2) mg/dL Total Bilirubin 0.70 (0.1-1.2) mg/dL AST 12 (5-40) units/L ALT 9 (7-56) units/L Alkaline Phosphatase 105 (35-129) units/L Total Protein 7.6 (6.3-8.2) g/dL Albumin 2.4 L (3.9-5) g/dL Albumin/Globulin Ratio 0.5 % Lipase (13-60) units/L Urine Color (Yellow) Urine Turbidity (Clear) Urine pH (5.0-7.0) Ur Specific [place] (1.003-1.030) Urine Protein (Negative) mg/dL Urine Glucose (UA) (Negative) mg/dL Urine Ketones (Negative) mg/dL Urine Blood (Negative) Urine Nitrite (Negative) Urine Bilirubin (Negative) Urine Urobilinogen (<2.0) mg/dL Ur Leukocyte Esterase (Negative) Urine WBC (Auto) (0.0-6.0) /HPF Urine RBC (Auto) (0.0-6.0) /HPF Urine Bacteria (Auto) (Negative) /HPF Urine WBC Clumps /HPF Urine Mucus /HPF 10/06/20 10/06/20 10/06/20 Range/Units 06:05 06:05 08:46 WBC (4.5-11.0) K/mm3 RBC (3.65-5.03) M/mm3 Hgb (10.1-14.3) gm/dl Hct (30.3-42.9) % MCV (79-97) fl MCH (28-32) pg MCHC (30-34) % RDW (13.2-15.2) % Plt Count (140-440) K/mm3 PT (12.2-14.9) Sec. INR (0.87-1.13) VBG pH 7.404 (7.320-7.420) Sodium (137-145) mmol/L Potassium (3.6-5.0) mmol/L Chloride (98-107) mmol/L Carbon Dioxide (22-30) mmol/L Anion Gap mmol/L BUN (7-17) mg/dL Creatinine (0.6-1.2) mg/dL Estimated GFR ml/min BUN/Creatinine Ratio % Glucose (65-100) mg/dL Lactic Acid 1.60 2.20 H* (0.7-2.0) mmol/L Calcium (8.4-10.2) mg/dL Total Bilirubin (0.1-1.2) mg/dL AST (5-40) units/L ALT (7-56) units/L Alkaline Phosphatase (35-129) units/L Total Protein (6.3-8.2) g/dL Albumin (3.9-5) g/dL Albumin/Globulin Ratio % Lipase (13-60) units/L Urine Color (Yellow) Urine Turbidity (Clear) Urine pH (5.0-7.0) Ur Specific [place] (1.003-1.030) Urine Protein (Negative) mg/dL Urine Glucose (UA) (Negative) mg/dL Urine Ketones (Negative) mg/dL Urine Blood (Negative) Urine Nitrite (Negative) Urine Bilirubin (Negative) Urine Urobilinogen (<2.0) mg/dL Ur Leukocyte Esterase (Negative) Urine WBC (Auto) (0.0-6.0) /HPF Urine RBC (Auto) (0.0-6.0) /HPF Urine Bacteria (Auto) (Negative) /HPF Urine WBC Clumps /HPF Urine Mucus /HPF 10/06/20 10/06/20 Range/Units 09:05 Unknown WBC (4.5-11.0) K/mm3 RBC (3.65-5.03) M/mm3 Hgb (10.1-14.3) gm/dl Hct (30.3-42.9) % MCV (79-97) fl MCH (28-32) pg MCHC (30-34) % RDW (13.2-15.2) % Plt Count (140-440) K/mm3 PT (12.2-14.9) Sec. INR (0.87-1.13) VBG pH (7.320-7.420) Sodium (137-145) mmol/L Potassium (3.6-5.0) mmol/L Chloride (98-107) mmol/L Carbon Dioxide (22-30) mmol/L Anion Gap mmol/L BUN (7-17) mg/dL Creatinine (0.6-1.2) mg/dL Estimated GFR ml/min BUN/Creatinine Ratio % Glucose (65-100) mg/dL Lactic Acid (0.7-2.0) mmol/L Calcium (8.4-10.2) mg/dL Total Bilirubin (0.1-1.2) mg/dL AST (5-40) units/L ALT (7-56) units/L Alkaline Phosphatase (35-129) units/L Total Protein (6.3-8.2) g/dL Albumin (3.9-5) g/dL Albumin/Globulin Ratio % Lipase 8 L (13-60) units/L Urine Color Red (Yellow) Urine Turbidity Cloudy (Clear) Urine pH 8.0 H (5.0-7.0) Ur Specific [place] 1.015 (1.003-1.030) Urine Protein >500 (Negative) mg/dL Urine Glucose (UA) Neg (Negative) mg/dL Urine Ketones Neg (Negative) mg/dL Urine Blood Sm (Negative) Urine Nitrite Neg (Negative) Urine Bilirubin Neg (Negative) Urine Urobilinogen < 2.0 (<2.0) mg/dL Ur Leukocyte Esterase Lg (Negative) Urine WBC (Auto) > 182.0 H (0.0-6.0) /HPF Urine RBC (Auto) 41.0 (0.0-6.0) /HPF Urine Bacteria (Auto) 4+ (Negative) /HPF Urine WBC Clumps 3+ /HPF Urine Mucus Few /HPF - EKG Data -: EKG Interpreted by Me EKG shows normal: sinus rhythm, ST-T waves (no stemi) Rate: tachycardia (102) - Radiology Data Radiology results: report reviewed Chest x-ray: No acute finding CT abdomen pelvis IV contrast: 1.9 cm obstructing stone in the right renal pelvis producing severe right-sided hydronephrosis and perinephric/periureteral inflammatory changes. There is thinning of the right renal cortex with questionable striations raising concern for pyelonephritis. Mild circumferential urinary bladder wall thickening and inflammatory change with gas in the bladder lumen. Findings are compatible with cystitis. UA correlation recommended. Large rectal stool burden with inflammatory changes compatible with stercoral proctitis. Cholelithiasis without cholecystitis. Airspace consolidation left lung base favors atelectasis. Developing pneumonia considered less likely. Diffuse osteopenia - Medical Decision Making 85-year-old female with dementia and CVA presents to the hospital with sepsis, UTI, obstructing urinary stone and infected sacral decubitus ulcer. No signs of septic shock at this time. Initial lactic acid normal but increased upon repeat. patient treated with 30 mL/kg bolus of normal saline, vancomycin, and Levaquin. Case discussed with on-call interventional radiologist for possible nephrostomy tube treatment of obstructing ureteral calculus. Dr. Vega who advises transfer to another hospital since we do not currently have urology coverage. Case discussed with [facility] urologist Dr Saucedo who accepted the patient for consultation and case discussed with Dr. Gilliland was admit the patient to the hospitalist service at [facility]. Critical Care Time: Yes Critical care time in (mins) excluding proc time.: 35 Critical care attestation.: If time is entered above; I have spent that time in minutes in the direct care of this critically ill patient, excluding procedure time. ED Disposition Clinical Impression: Sepsis, Infected decubitus ulcer, Sacral decubitus ulcer, Obstructive uropathy, Right renal stone, Dehydration, Dementia, CVA, old, hemiparesis, Pyelonephritis Disposition: DC/TX-70 ANOTHER TYPE HLTHCARE Is pt being admited?: No Condition: Stable Instructions: Abdominal Pain (ED) Time of Disposition: 10:35 (accepted for [facility] transfer)
[2020-10-06] MEDS ORDERED: ACETAMINOPHEN 650 MG RECT SUPP PR ONE (07:48)
--- NOTE | 2020-10-06 08:27 | Cat Scan Report ---
CT ABDOMEN AND PELVIS WITH CONTRAST INDICATION / CLINICAL INFORMATION: abd distention, low grade fever. TECHNIQUE: Axial CT images were obtained through the abdomen and pelvis following the administration of intraven ous contrast. All CT scans at this location are performed using CT dose reduction for ALARA by means of automated exposure control. COMPARISON: None available. FINDINGS: LOWER CHEST: Airspace consolidation in the left lung base likely reflects atelectasis. LIVER: No significant abnormality. GALLBLADDER: Cholelithiasis without evidence of cholecystitis. PANCREAS: No significant abnormality. SPLEEN: No significant abnormality. ADRENALS: No significant abnormality. KIDNEYS / URETERS: There is a 1.9 cm obstructing stone within the right renal pelvis producing severe right-sided hydronephrosis and perinephric/periureteral edema. There is thinning of the right renal cortex with mild striations. URINARY BLADDER: Gas is seen within the dependent portion of the urinary bladder. There is mild circu mferential urinary bladder wall thickening and associated inflammatory change. REPRODUCTIVE ORGANS: No significant abnormality. STOMACH / SMALL BOWEL: No significant abnormality. COLON: There is a large rectal burden with mild mucosal thickening and inflammatory change. APPENDIX: No significant abnormality. PERITONEUM: There is trace free fluid within the right paracolic gutter. No free air. No fluid collec tion. LYMPH NODES: No significant adenopathy. AORTA / ARTERIES: Moderate atherosclerotic calcification without acute abnormality. IVC / VEINS: No significant abnormality. SKELETAL SYSTEM: There is diffuse demineralization without acute fracture. ADDITIONAL FINDINGS: None. IMPRESSION: 1. 1.9 cm obstructing stone in the right renal pelvis producing severe right-sided hydronephrosis and perinephric/periureteral inflammatory change. There is thinning of the right renal cortex with quest ionable striations raising concern for pyelonephritis. 2. Mild circumferential urinary bladder wall thickening and inflammatory change with gas in the bladd er lumen. Findings are compatible with cystitis. Correlation with urinalysis is recommended. 3. Large rectal stool burden with mild inflammatory change compatible with stercoral proctitis. 4. Cholelithiasis without evidence of cholecystitis. 5. Airspace consolidation in the left lung base favors atelectasis. Developing pneumonia would be con sidered less likely. 6. Diffuse osteopenia. Signer Name: Jani Cruz MD Signed: 10/06/2020 8:23 AM Workstation Name: [id number]
[2020-10-06] MEDS ORDERED: VANCOMYCIN 1,500 MG in SODIUM CHLORIDE 0.9% 500 ML 500 ML IV ONE (08:43)
[2020-10-06] MEDS ORDERED: SODIUM CHLORIDE 0.9% 1000 ML 2,000 ML ONE (09:29)
[2020-10-06 09:55] LABS: Bacteria,Urine 4+ /HPF (Negative); Bilirubin,Urine NEG (Negative); Blood,Urine SM (Negative); Color,Urine Red (Yellow); Mucus,Urine FEW /HPF; Urobilinogen,Urine < 2.0 mg/dL (<2.0)
[2020-10-06 09:59] LABS: Protein,Urine >500 mg/dL (Negative); WBC,Urine > 182.0 /HPF (0.0-6.0)
[2020-10-06 10:41] LABS: Band Neutrophils # (Manual) 1.4 K/mm3; Total Cells Counted 100
[2020-10-06 10:43] LABS: Hypochromasia Few; Platelet Estimate Consistent w Auto; Target Cells Few
[2020-10-06 12:56] VITALS: BP 136/70
== END 2020-10-06 13:09 | disposition other institution (70) ==
LOC: ED 04:04
DX: A41.9 Sepsis, unspecified organism (principal); L89.159 Pressure ulcer of sacral region, unspecified stage; N13.6 Pyonephrosis; E86.0 Dehydration; N20.0 Calculus of kidney; F03.90 Unspecified dementia, unspecified severity, without behavioral disturbance, psychotic disturbance, mood disturbance, and anxiety; I10 Essential (primary) hypertension; K21.9 Gastro-esophageal reflux disease without esophagitis; M19.91 Primary osteoarthritis, unspecified site; R56.9 Unspecified convulsions; Z86.73 Personal history of transient ischemic attack (TIA), and cerebral infarction without residual deficits; Z79.899 Other long term (current) drug therapy; Z88.0 Allergy status to penicillin; Z88.8 Allergy status to other drugs, medicaments and biological substances
CPT/HCPCS: 36415; 51702; 71045; 74177; 80053; 81001; 82140; 82805; 83690; 85007; 85025; 85610; 87040; 87086; 93005; 96365; 96366; 96368; 99291; J1956; J3370; J7030; J7040; Q9967